=== PATIENT | male | born 1955 | race Caucasian/White ===

== ENCOUNTER 2018-05-14 15:55 | Outpatient (CLI) | payer BC, SELFPAY ==
[2018-05-15 10:35] LABS: PSA, Screening <0.1 ng/ml (0-4.5)
== END 2018-05-14 16:15 ==
PROVIDERS: PCP Emergency Medicine; Visit Provider Emergency Medicine
DX: C61 Malignant neoplasm of prostate
CPT/HCPCS: 36415; 84153

== ENCOUNTER 2019-04-30 15:36 | Outpatient (CLI) | payer BC, SELFPAY ==
[2019-05-01 17:56] LABS: PSA, Diagnostic <0.1 ng/ml (0-4.5)
== END 2019-04-30 15:56 ==
PROVIDERS: PCP Emergency Medicine; Visit Provider Emergency Medicine
DX: C61 Malignant neoplasm of prostate (principal)
CPT/HCPCS: 36415; 84153

== ENCOUNTER 2020-03-17 04:28 | Outpatient (CLI) | payer BC, SELFPAY ==
[2020-03-17 17:40] LABS: PSA, Diagnostic <0.1 ng/mL (0.0-4.5)
== END 2020-03-17 04:48 ==
PROVIDERS: PCP Emergency Medicine; Visit Provider Emergency Medicine
DX: C61 Malignant neoplasm of prostate (principal)
CPT/HCPCS: 36415; 84153

== ENCOUNTER 2021-03-16 15:53 | Outpatient (REF) | payer MEDICARE, BC, SELFPAY ==
[2021-03-16 13:33] LABS: Calculated LDL 119 mg/dL (<100); Cholesterol 193 mg/dL (<200); HDL Cholesterol 48 mg/dL (40-60); Triglyceride 134 mg/dL (<150)
[2021-03-16 21:37] LABS: PSA, Diagnostic <0.1 ng/mL (0.0-4.5)
== END 2021-03-16 15:54 | disposition home or self-care (01) ==
LOC: LBN 15:53
PROVIDERS: PCP Emergency Medicine; Visit Provider Emergency Medicine
DX: C61 Malignant neoplasm of prostate (principal); Z00.00 Encounter for general adult medical examination without abnormal findings; Z13.6 Encounter for screening for cardiovascular disorders
CPT/HCPCS: 80061; 84153

== ENCOUNTER 2023-07-19 03:41 | Outpatient (CLI) | payer MEDICARE, SELFPAY ==
[2023-07-19 12:05] LABS: Calculated LDL 132 mg/dL (<100); Cholesterol 222 mg/dL (<200); HDL Cholesterol 78 mg/dL (40-60); Triglyceride 61 mg/dL (<150)
[2023-07-19 21:37] LABS: PSA, Screening <0.1 ng/mL (<=4.5)
== END 2023-07-19 03:42 | disposition home or self-care (01) ==
LOC: LBO 03:41
PROVIDERS: PCP Nurse Practitioner Family; Visit Provider Nurse Practitioner Family
DX: E78.00 Pure hypercholesterolemia, unspecified (principal); Z85.46 Personal history of malignant neoplasm of prostate; Z12.5 Encounter for screening for malignant neoplasm of prostate
CPT/HCPCS: 36415; 80061; 84153

== ENCOUNTER 2024-07-03 01:21 | Outpatient (CLI) | payer MEDICARE, SELFPAY ==
--- OUTSIDE RECORDS SUMMARY | 2024-07-03 01:28 | XMS_ITS | Encounter Summary ---
Author Organization [facility] Address [facility] [place] [address] Care Team Providers Care Library Director Name Role Phone JaydenJem orozco Primary Care Provider [phone] Encounter Details Date Type Department Care Team (Late st Contact Info) Description 08/11/2012 [place] [address] Eric Avila MD [facility] [place] [place] [address] Social History Tobacco Use Types Packs/Day Years Used Date Smoking Tobacco: Never Smokeless Tobacco: Never Alcohol Use Standard Drinks/Week Comments Yes 2 (1 standard drink = 0.6 oz pur e alcohol) once a week at most Sex and Gender Information Value Date Recorded Sex Assigned at Not on file Gender Identity Not on file Sexual Orientation Not on file documented as of this encounter Miscellaneous Notes * Telephone Encounter - Ryann Hills LPN - 08/11/2012 5:08 PM EST Mr. Silver calls today requesting to see if he can return to work tomorrow instead of next week. Henotes that he feels well. 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 Note faxed to [phone] attn: Karely James per patient request. Note lists ok to return to work with 2 weeks of limited restrictions for no heavy lifting. documented in this encounter Plan of Treatment Upcoming Encounters Date Type Department Care Team (Late st Contact Info) Description 10/05/2024 9:45 AM EDT Office Visit Dermatology at [facility] [address] [place] [address] Maverick Polanco MD [address] [facility] [place] [address] documented as of this encounter Visit Diagnoses Not on filedocumented in this encounter Care Teams Library Director Relationship Specialty Start Date End Date Jem Carpenter DO [address] [place] [address] PCP - General 06/23/12 02/19/22 documented as of this encounter
--- OUTSIDE RECORDS SUMMARY | 2024-07-03 01:28 | XMS_ITS | Encounter Summary ---
Author Organization [facility] Address [facility] [place] [address] Care Team Providers Care Machinist Apprentice Wood Name Role Phone JaydenFrances orozco Primary Care Provider [phone] Reason for Visit * Reason Comments Follow-up Encounter Details Date Type Department Care Team (Latest Contact Info) Description 10/27/2012 4:10 PM EDT [place] [address] Eric Avila MD [facility] [place] [address] S/P prostatectomy (Primary Dx) Discharge Disposition: Home Social History Tobacco Use Types Packs/Day Years [...] on file documented as of this encounter Last Filed Vital Signs Vital Sign Reading Time Taken Comments Blood Pressure 129/86 10/27/2012 4:46 PM EDT Pulse 59 10/27/2012 4:46 PM EDT Temperature - - Respiratory Rate 20 10/27/2012 4:46 PM EDT Oxygen Saturation - - Inhaled Oxygen Concentration - - Weight 81.6 kg (180 lb) 10/27/2012 4:46 PM EDT Height 180.3 cm (5' 11) 10/27/2012 4:46 PM EDT Body Mass Index 25.1 10/27/2012 4:46 PM EDT documented in this encounter Progress Notes * Eric Avila MD - 10/27/2012 4:57 PM EDT Patient Name: Date of Service: 10/27/2012 Primary Care Provider: FRANCES CARPENTER DO Reason for Visit: Margarito Silver is a 57 y.o. male who returns for follow up. Impression and data from last visit: History of Present Illness: 57 year old who on 07/11/2012 had a bilateral nerve sparing Radical prostatectomy for a [id number] Dudley 3+4=7 PSA 7.6 at diagnosis. All margins were negative. 11 nodes negative. Currently he is voiding well. Stream is strong. He has good urine controls. He does use 1 pad a day. He does not use on weekends. He has erections that are good enough for intercourse. There has been no change in PMhx/Pshx since last visit. Examination: No adenopathy. No hernias. Abdomen benign Labs: 10/2012 PSA <0.03 X-rays: None Impression: [id number] Mayank 3+4=7 prostate cancer sp RRP. ROSARIO Mild incontinence improving Recovering erections Plan: F/u with Dr Main in 6 months with a PSA. I will see as needed Erci Avila documented in this encounter Plan of Treatment Upcoming Encounters Date Type Department Care Team (Late st Contact Info) Description 10/05/2024 9:45 AM EDT Office Visit Dermatology [facility] [address] [place] [address] Maverick Polanco MD [address] [facility] [place] [address] documented as of this encounter Procedures Procedure Name Priority Date/Time Associated Diagnosis Comments PSA (ULTRASENSITIVE) STAT 10/27/2012 3:47 PM EDT S/P prostatectomy documented in this encounter Results * PSA (10/27/2012 3:47 PM EDT) Prostate Specific Antigen (Ultrasensitiv e) <0.03 0.00 - 4.00 ng/mL YARIEL GARCIA Blood specimen (specimen) 10/27/2012 3:47 PM EDT 10/27/2012 3:58 PM EDT Narrative Resulting Agency Comment Spec In Lab Eric Avila MD CHEMISTRY ORDERABLES [facility] documented in this encounter Visit Diagnoses Diagnosis S/P prostatectomy- Primary Other postprocedural status documented in this encounter Care Teams Machinist Apprentice Wood Relationship Specialty Start Date End Date Frances Carpenter DO [address] [place] [address] PCP - General 06/23/12 02/19/22 documented as of this encounter
--- OUTSIDE RECORDS SUMMARY | 2024-07-03 01:28 | XMS_ITS | Encounter Summary ---
Author Organization [facility] [place] [address] Care Team Providers Care Breakfast Host Name Role Phone Norman Abdul CIRCULATION SALES REPRESENTATIVE Primary Care Provider [phone] Reason for Visit * Reason Comments Skin Check Encounter Details Date Type Department Care Team (Late st Contact Info) Description 03/02/2024 11:15 AM EDT Office Visit Dermatology [facility] [address] [place] [address] Maverick Polanco MD [address] [facility] [place] [address] Seborrheic keratosis; Solar lentigo; Multiple benign melanocytic nevi of both upper extremities, both lower extremities, and trunk; Hinson angioma; Sebaceous hyperplasia; Lipoma of right upper extremity Social History Tobacco Use Types Packs/Day Years [...] on file documented as of this encounter Progress Notes * Bryanna Brice RN - 03/02/2024 11:15 AM EDT Images from the original note were not included. DEPARTMENT OF DERMATOLOGY Medical Dermatology Clinic Provider: Maverick Polanco MD FAAD at Dermatology at [facility] Patient's preferred name Margarito Preferred contact method for results []Phone: with detailed results? []Yes []No [x]myD-H []Letter Approved contact for medical information: PAST MEDICAL HISTORY (if blank, patient denies history) Melanoma -- Dysplastic nevi -- SCC -- BCC -- [place] [] cryotherapy [] efudex [] PDT [] Other Relevant Medications [] Immunosuppression [] Transplant [] Oncogenic medication [] Nicotinamide 500mg po bid Other relevant history FAMILY HISTORY (if blank, patient denies history) Melanoma -- NMSC -- Other relevant history SOCIAL HISTORY Occupation: Works for [employer] Last seen 03/20/2023. History of Present Illness: Margarito Silver is 68 y.o. and here for the following: Requests skin cancer screening. Concerned about the following: Lesion in the left axilla x2, present for 1 year, occasionally itchy Lesions on the left forehead, itchy Brown lesion on the left eyelid, asymptomatic Medications: Reviewed in eD-H Allergies: Reviewed in eD-H Skin Examination Standby: Bryanna Brice RN Well developed, well-nourished in no apparent distress, alert and oriented to time, person, place and situation. Patient was asked to disrobe to the level of comfort. Examination of the skin of the head - including the scalp, face, ears, eyelids, nose, lips, tongue,oral/conjunctival mucosa - neck, chest, abdomen, back, axillae, buttocks, pubic area, upper and lower extremities, including the nail plates, significant for the following. Exam Findings/Assessment/Plan Lipomas 4 cm rubbery mobile nodule on the right posterior shoulder. 6 cm rubbery mobile nodule on the rightlateral shoulder. Benign. Recommend clinical monitoring. Counseled: benign fatty growths of unknown etiology with occasional sympomatic subtypes and very rare malignant variants. Diagnostic confirmation with biopsy available but not necessary. Treatment isrecommended only if symptoms, such as pain, or great size that impacts the patient develop. Treatment includes excision and risks scar, infection, bleeding, cosmetic defects and recurrence. Answered all questions. Patient elects clinical monitoring. Return to clinic if changes in color, enlarges, or should bleeding or other symptoms occur. Patientagrees to plan. Sebaceous Gland Hyperplasia Yellow-hued, cauliflower-like umbilicated papules c/w sebaceous hyperplasia on the face Counseled: benign growths of sebaceous glands (hair follicle unit) that harbor a rare risk of sebaceous carcinoma, and treatment options, including but not limited to topical retin-a, light electrocautery, or laser therapy. Cosmetic treatment and therefore, likely [id number] expense. Handout given. Answered all questions. Patient declines treatment at this time. Return to clinic if changes in color, enlarges, or should bleeding or other symptoms occur. Patientagrees to plan. Lentigines Multiple, uniformly mayfield, slightly irregular, polygonal macules c/w lentigos on sun-exposed areas ofskin Benign. Counseled: lentigines, sun damage and spontaneous development, rare risk of lentigo maligna (melanoma arising in a lentigo), sun protection, no treatment necessary but discussed cosmetic options, including topical bleaching agents, as well as chemical peels and lasers. Answered all questions. Handout given. Hinson Angiomas Hinson red papules on the head, trunk, and extremities Counseled: hinson angiomas. Benign. No treatment necessary unless symptoms develop. Treatment considered cosmetic and [id number]. Treatment options, including but not limited to electrocautery, discussed. Handout given. Nevi Well-demarcated, round or oval, mayfield or brown macules and papules with benign morphology on the head, neck, trunk, extremities, and buttocks Morphology reassuring for benign nevi. Counseled: Nevi and risks for melanoma arising in a nevus. Recommend regular self-examinations. Answered all questions. Reviewed ABCDEs of melanoma, as below. Return to clinic as needed for changes in color, size, shape or thickness or should bleeding or other symptoms occur. Patient agrees to plan. Seborrheic Keratoses Scattered, stuck-on, well-demarcated, mayfield or brown, waxy or warty papules c/w SKs on the head, trunk, extremities, and axillae including the left lateral hip, right lower back, left upper forehead, and left upper eyelid. Benign. No treatment necessary. Counseled: SKs, benign, treatment options for symptomatic lesions. Answered all questions. Handout given. Patient Counseled [Skin Cancer] [] History of skin cancer [] History of immunosuppression [x] History of extensive sun exposure [] Family history of skin cancer Counseled: recommend sun protection, regular self skin exams, provider skin exams every 12-24 months, and the ABCDEs of melanoma/NMSC. Answered all questions. Handouts on how to do a self-exam, skin cancers and sun protection/recommended OTC sunscreens given to the patient. Joint decision for skin cancer screening in 24 months. Regular full body self examinations and return to clinic for new suspicious lesions or if changes/symptoms in existing lesions develop. Follow-up: 24 months for a SCS. Return sooner as needed for suspicious lesion, new or worsening dermatitis. [x] Recall placed [] Forwarded to university archivist [] Patient scheduled before exiting Scribe attestation: Bryanna Brice RN has performed the documentation for this encounter in the presence of and acting as a scribe for MD ANKIT Ariza. I performed the above scribed service and agree with the accuracy of the documentation in this encounter. Reviewed and signed by: MD ANKIT Ariza Dermatology [facility] documented in this encounter Plan of Treatment Upcoming Encounters Date Type Department Care Team (Late st Contact Info) Description 10/05/2024 9:45 AM EDT Office Visit Dermatology at [facility] [address] [place] [address] Maverick Polanco MD [address] [facility] [place] [address] documented as of this encounter Visit Diagnoses Diagnosis Seborrheic keratosis Other seborrheic keratosis Solar lentigo Other dyschromia Multiple benign melanocytic nevi of both upper extremities, both lower extremities, and trunk Hinson angioma Nevus, non-neoplastic Sebaceous hyperplasia Other specified disease of sebaceous glands Lipoma of right upper extremity Lipoma of other specified sites documented in this encounter Care Teams Breakfast Host Relationship Specialty Start Date End Date Norman Abdul, BECKA [address] [place] [address] [address] [place] [address] PCP - General Family Medicine 02/20/22 documented as of this encounter
--- OUTSIDE RECORDS SUMMARY | 2024-07-03 01:28 | XMS_ITS | Encounter Summary ---
Author Organization [facility] [place] [address] Care Team Providers Care Metal Flooring Installer Name Role Phone Norman Abdul APRN Primary Care Provider [phone] Encounter Details Date Type Department Care Team (Latest Contact Info) Description 03/18/2023 Travel Social History Tobacco Use Types Packs/Day Years [...] on file documented as of this encounter Plan of Treatment Upcoming Encounters Date Type Department Care Team (Late st Contact Info) Description 10/05/2024 9:45 AM EDT Office Visit Dermatology at [facility] [address] [place] [address] Maverick Polanco MD [address] [facility] [place] [address] documented as of this encounter Visit Diagnoses Not on filedocumented in this encounter Care Teams Metal Flooring Installer Relationship Specialty Start Date End Date Norman Abdul APRN [address] [place], [place] [id number] PCP - General Family Medicine 02/20/22 documented as of this encounter
--- OUTSIDE RECORDS SUMMARY | 2024-07-03 01:28 | XMS_ITS | Encounter Summary ---
Author Organization [facility] Address [facility] [place] [address] Care Team Providers Care Hydrochloric Manufacturing Supervisor Name Role Phone JaydenJem orozco Primary Care Provider [phone] Reason for Visit * Reason Comments Skin Check Encounter Details Date Type Department Care Team (Late st Contact Info) Description 09/17/2019 8:30 AM EST Office Visit Dermatology at [address] [address] Suzy Duran MD [facility] [place] [address] Lentigines; Seborrheic keratosis; Seborrheic dermatitis; Multiple benign nevi Social History Tobacco Use Types Packs/Day Years [...] as of this encounter Progress Notes * Suzy Duran MD - 09/17/2019 8:30 AM EST DERMATOLOGY OUTPATIENT CLINIC NOTE Date of service: 09/17/2019 Margarito Silver : 1955 Provider: Suzy Durna MD PROBLEM: Full skin screening with concerning spot SKIN HISTORY: none HPI Margarito Silver is a 64 y.o.male. New pt here for full skin screening and a concerning spot. He has a mole on the back that has been present for unknown length of time and has no symptoms. He reports a mole on the right latter-day that has been present for along time. He has a skin rash on chest. Hehas used something in the past, but nothing recently. Does not bother him. They are going to [place] tomorrow to visit their daughter. Social History: Works for [employer] Here with [employer] Family History: none ADR: No Known Allergies CURRENT MEDICATIONS: No current outpatient medications on file. No current facility-administered medications for this visit. PROBLEM LIST: Patient Active Problem List Diagnosis Code ??? Prostate cancer C61 ROS General: feeling well. Oriented X 3. Skin: denies other skin complaints EXAM General: NAD, pleasant, cooperative Skin: Patient was asked to undress to the level of his comfort. Verbalized that the provider's preference is for the patient to remove all clothing and that the provider will not examine areas patient elects to keep covered. Patient's decision was to remove underwear for a total body skin exam. This includes examination of the scalp, hair, face, ears, neck, chest, abdomen, back, axillae, upper and lower extremities, hands, and feet. Buttocks and genitalia were examined with patient's consent. Significant skin findings: -Trunk and extremities: waxy, brown stuck-on papules. -Photo distributed areas: hyperpigmented macules. -Central chest: pink scaly patch. -Trunk and extremities: scattered, 2-6 mm medium brown macules. ASSESSMENT/PLAN Seborrheic Keratoses - Explained that these are hereditary and adult-acquired. Reassured patient of benign nature. No treatment necessary. Lentigines - Discussed benign nature of lesions and provided reassurance. No treatment necessary at this time. - Discussed nature of sun-induced photo-aging and skin cancers. Advised sun avoidance, protective clothing, and use of SPF 30+ broad-spectrum sunscreens. - Instructed patient to observe closely for skin damage/changes and call if such occur. Seborrheic Dermatitis - Discussed etiology and therapeutic options. - Patient declines Ketoconazole cream at this time. - Recommended using OTC anti-dandruff shampoo several times weekly. Advised lathering it on and letting it sit for 5 minutes before rinsing. Low density Benign-Appearing Nevi - No atypical lesions or features worrisome for malignancy. - Advised patient to watch for anything new or changing. Discussed changes (bleeding, pain, change in color or shape) that should prompt re-evaluation.?? - Will continue to monitor. RTC - 2 years for a full skin exam; sooner if needed. Reminder placed in system to schedule. Instructed patient to call with questions or concerns. Note initiated and routed to physician for review and change by: MALIA DE LEON LPN I, Josefina Curry, Clinical Scribe have performed the documentation for this encounter in the presence of and acting as a scribe for Suzy Duran MD. I, Dr. Suzy Duran, performed the visit service though my nurse assisted me in scribing the note. I reviewed and edited this note above, a scribed service performed by my nurse. On closure of this note I agree with the accuracy of the documentation. Suzy Duran MD Section of Dermatology [facility] documented in this encounter Plan of Treatment Upcoming Encounters Date Type Department Care Team (Late st Contact Info) Description 10/05/2024 9:45 AM EDT Office Visit Dermatology at [facility] [address] [place] [address] Maverick Polanco MD [address] [facility] [place] [address] documented as of this encounter Visit Diagnoses Diagnosis Lentigines Other dyschromia Seborrheic keratosis Other seborrheic keratosis Seborrheic dermatitis Seborrheic dermatitis, unspecified Multiple benign nevi Benign neoplasm of skin, site unspecified documented in this encounter Care Teams Hydrochloric Manufacturing Supervisor Relationship Specialty Start Date End Date Jem Carpenter DO [address] [place] [address] [address] [place] [address] PCP - General 06/23/12 02/19/22 documented as of this encounter
--- OUTSIDE RECORDS SUMMARY | 2024-07-03 01:28 | XMS_ITS | Encounter Summary ---
Author Organization [facility] Address [facility] [place] [address] Care Team Providers Care Gas Torch Solderer Name Role Phone Franko Norman Matson APRN Primary Care Provider [phone]- [phone] Reason for Visit * Consultation (Routine) - Closed Specialty Diagnoses / Procedures Referred By Robby almaraz Referred To Contact Dermatology Diagnoses Screening for skin cancer Zak Jimenez MD [address] [place] [phone] [facility] [address] [place] [address] Referral ID Status Reason Start Date Expiration Date V isits Requested Visits Authorized [id number] Closed Consult, Test & Treat PCP Updated and/or Approved 12/01/2021 12/01/2022 6 6 Encounter Details Date Type Department Care Team (Late st Contact Info) Description 02/20/2022 8:15 AM EDT Office Visit Dermatology at [facility] [address] [place] [address] Gaurav Vega MD [facility] [address] [place] [address] Seborrheic keratoses; Lentigines; Actinic keratoses; Tinea versicolor; Lipoma, unspecified site; Multiple benign nevi Social History Tobacco Use [...] as of this encounter Progress Notes * Brian Ana Georges, JUNIOR BUYER - 02/20/2022 8:15 AM EDT Images from the original note were not included. DEPARTMENT OF DERMATOLOGY Medical Dermatology Clinic Provider: Gaurav Vega MD Patient's preferred name Margarito Preferred contact method for results []Phone []myD-H []Letter Detailed phone message OK? Are there any other people with whom we may discuss your care? Past Medical History Date, location, treatment Melanoma N Dysplastic nevi N SCC N BCC N AKs N Other relevant past medical history N Family History Details Melanoma N NMSC N Other relevant family history N Social History Works for [employer] Here with Jing History of Present Illness: Margarito Silver is a 66 y.o. Patient returns to clinic today for a full skin exam, he has a spot on the left hip that has been there for years, not changing, itchy; he has a mole on the right forehead removed with LN2 by his PCP about a year ago that he would like checked. He has not noted any other new, growing, changing, bleeding, painful or otherwise symptomatic moles or other lesions. He has not noted any other changes in any preexisting lesions. Last visit at Dermatology: 09/17/2019 Last visit with this provider: Visit date not found Medications: Reviewed in eD-H Allergies: Reviewed in eD-H Skin Examination: Full skin examination: Patient asked to undress to their comfort level. Verbalized that the provider???s preference is that the patient remove all clothing and that the provider will not examine areas patient elects to keep covered. Patient elects to have the following examined: scalp, hair, face, ears, neck, chest, axillae, abdomen, back, and upper and lower extremities. Genitalia not examined. Assessment/Plan: #. Actinic Keratoses - Ill-defined gritty papules on the forehead (x3). - Explained premalignant potential of these lesions. - Discussed treatment with cryotherapy. Patient elects to proceed with cryotherapy today. - Instructed patient to return to clinic for re-evaluation if lesion(s) does not resolve as expected with this treatment. Procedure: Destruction of lesion(s) with cryotherapy (LN2). Location(s): As noted above. Number: 3 Discussed procedure and expectations, including risks and benefits. Verbal consent obtained. Treated with LN2. There were no complications; Patient tolerated the procedure well. Post-procedure expectations and wound care reviewed. #. Tinea Versicolor - Scattered 0.5-1.5 cm pink to light brown, round, well- demarcated, thin patches with very fine overlying scale on the central chest. - Reviewed diagnosis, association with yeast, and treatment options. - Discussed delay in return of normal pigmentation after treatment and accentuation of difference with unprotected sun exposure. - Start Rx Ketoconazole 2% cream BID for 2 weeks #. Lipoma - 8 cm rubbery, subcutaneous nodule on the right arm and 2 cm on right posterior shoulder. - Discussed etiology and benign nature of lesion and provided reassurance. No treatment necessary at this time. #. Lentigines - Scattered light-brown, evenly pigmented, well-demarcated macules on sun-exposed areas of the trunk and extremities. - No worrisome pigmented lesions. Discussed benign nature of lesions and provided reassurance. Willcontinue to monitor. #. Seborrheic Keratoses - Stuck on, waxy papules on the trunk and extremities, including the left hip. - Discussed benign nature of lesions and provided reassurance. No treatment necessary at this time. #. Benign Nevi - Scattered medium brown, evenly pigmented macules and papules on the trunk and extremities with reassuring pigment pattern on dermoscopy. 4 mm nevus on right latter-day. - Discussed benign nature of lesions and provided reassurance. Will continue to monitor. Other: ??? N/A RTC: 1 year for FSE []Note routed to department secretary [x]Recall placed in scheduling system []Appointment scheduled at checkout Scribe attestation: Ana Torres CMA and Francis Toscano have performed the documentation for this encounter in the presence of and acting as a scribe for Gaurav Vega MD. I performed the above scribed service and agree with the accuracy of the documentation in this encounter. Reviewed and signed by: Gaurav Vega MD Dermatology [facility] documented in this encounter Plan of Treatment Upcoming Encounters Date Type Department Care Team (Late st Contact Info) Description 10/05/2024 9:45 AM EDT Office Visit Dermatology at [facility] [address] [place] [address] Maverick Polanco MD [address] [facility] [place] [address] documented as of this encounter Visit Diagnoses Diagnosis Seborrheic keratoses Lentigines Other dyschromia Actinic keratoses Actinic keratosis Tinea versicolor Pityriasis versicolor Lipoma, unspecified site Multiple benign nevi Benign neoplasm of skin, site unspecified documented in this encounter Care Teams Gas Torch Solderer Relationship Specialty Start Date End Date Norman Abdul APRN [address] [place] [address] PCP - General Family Medicine 02/20/22 documented as of this encounter
--- OUTSIDE RECORDS SUMMARY | 2024-07-03 01:28 | XMS_ITS | Encounter Summary ---
Author Organization [facility] [place] [address] Care Team Providers Care Shell Coremaker Name Role Phone Norman Abdul APRN Primary Care Provider [phone]- [phone] Encounter Details Date Type Department Care Team (Latest Contact Info) Description 03/20/2023 Travel Social History Tobacco Use Types Packs/Day [...] 9:45 AM EDT Office Visit Dermatology at [facility] [address] [place] [address] Maverick Polanco MD [address] [facility] [place] [address] documented as of this encounter Visit Diagnoses Not on filedocumented in this encounter Care Teams Shell Coremaker Relationship Specialty Start Date End Date Norman Abdul APRN [address] [place], [place] [id number] PCP - General Family Medicine 02/20/22 documented as of this encounter
--- OUTSIDE RECORDS SUMMARY | 2024-07-03 01:28 | XMS_ITS | Encounter Summary ---
Author Organization [facility] Address [facility] [place] [address] Care Team Providers Care Animal Sticker Name Role Phone JaydenJem orozco Primary Care Provider Encounter Details Date Type Department Care Team (Late st Contact Info) Description 07/21/2012 11:00 AM EST [place] [address] Rita Calderon MD [facility] [place] [address] Prostate cancer (Primary Dx) Discharge Disposition: Home Social History [...] as of this encounter Progress Notes * Guy Yarbrough MD - 07/21/2012 1:37 PM EST CLINIC NOTE Pt here for catheter removal s/p RALP. We discussed his path including that his margins were negative, he has negative nodes, and his disease grade was the same as his biopsy (3+4). He is enthusiastic about this news. He has some leakage and will start kegels. Path is below: SURGICAL PATHOLOGY ---Pathologic Diagnosis--- A - Specimen type: Radical prostatectomy Histologic type: Adenocarcinoma of the prostate Laporte grades: 3+4 Laporte score: 7 Location of tumor: Right lobe % prostate involved by tumor: 10% Extracapsular extension (MARANDA):Absent Seminal vesicle invasion: Absent Margins: Margins uninvolved by invasive carcinoma Perineural invasion: Present Lymphovascular invasion: Absent Additional findings: 1 - Cystic atrophy. 2 - Focal acute prostatitis. TNM STAGING (AJCC, 7th ed., 2009): Extent of invasion: pT2a (organ confined, unilateral, <1/2 of 1 side) Regional lymph nodes: pN0 (no regional LN metastasis) Distant metastasis: pMX (cannot be assessed) B - Left pelvic lymph nodes, excision: Five lymph nodes negative for malignancy (0/5). C - Right pelvic lymph nodes, excision: Six lymph nodes negative for malignancy (0/6). CR-0 documented in this encounter Plan of Treatment Upcoming Encounters Date Type Department Care Team (Late st Contact Info) Description 10/05/2024 9:45 AM EDT Office Visit Dermatology at [facility] [address] [place] [address] Maverick Polanco MD [address] [facility] [place] [address] documented as of this encounter Visit Diagnoses Diagnosis Prostate cancer- Primary Malignant neoplasm of prostate documented in this encounter Care Teams Animal Sticker Relationship Specialty Start Date End Date Jem Carpenter DO [address] [place] [address] [address] [place] [address] PCP - General 06/23/12 02/19/22 documented as of this encounter
--- OUTSIDE RECORDS SUMMARY | 2024-07-03 01:28 | XMS_ITS | Encounter Summary ---
Author Organization [facility] Address [facility] [place] [address] Care Team Providers Care Change Lead Name Role Phone JaydenJem herring Primary Care Provider [phone] Encounter Details Date Type Department Care Team (Late st Contact Info) Description 07/18/2012 Telephone [place] [address] Jose L Upton MD [facility] [place] [address] Social History Tobacco Use Types Packs/Day Years [...] encounter Miscellaneous Notes * Telephone Encounter - Jose L Upton - 07/18/2012 7:14 PM EST Pt called again, minimal drainage into catheter over the last 2 hours, leaking more around the catheter than into it. Unsure if his bladder is full or not, but having discomfort in his lower abdomen.Advised I cannot be sure his walker is not occluded, advised to go to local ED for bladder scan to be sure his walker is draining, it if it is he may benefit from anticholinergics prior to walker removal on Saturday. documented in this encounter Plan of Treatment Upcoming Encounters Date Type Department Care Team (Late st Contact Info) Description 10/05/2024 9:45 AM EDT Office Visit Dermatology at [facility] [address] [place] [address] Maverick Polanco MD [address] [facility] [place] [address] documented as of this encounter Visit Diagnoses Not on filedocumented in this encounter Care Teams Change Lead Relationship Specialty Start Date End Date Jem Carpenter DO [address] [place] [address] PCP - General 06/23/12 02/19/22 documented as of this encounter
--- OUTSIDE RECORDS SUMMARY | 2024-07-03 01:28 | XMS_ITS | Encounter Summary ---
Author Organization [facility] [place] [address] Care Team Providers Care Interior Designer Name Role Phone Norman Abdul BECKA Primary Care Provider [phone]- [phone] Encounter Details Date Type Department Care Team (Late st Contact Info) Description 03/20/2023 4:30 PM EDT Office Visit Dermatology [facility] [address] [place] [address] Maverick Polanco MD [address] [facility] [place] [address] Sebaceous hyperplasia; SK (seborrheic keratosis); Multiple benign nevi of upper extremity, lower extremity, and trunk; Hinson angioma; Lentigines; Inflamed seborrheic keratosis; Seborrheic dermatitis Social History Tobacco Use Types Packs/Day Years [...] as of this encounter Progress Notes * Maverick Polanco MD - 03/20/2023 4:30 PM EDT Images from the original note were not included. DEPARTMENT OF DERMATOLOGY Medical Dermatology Clinic Provider: Maverick Polanco MD FAAD at Dermatology at [facility] Patient's preferred name Margarito Preferred contact method [...] relevant history SOCIAL HISTORY Occupation: Works for [employer] Last seen 02/20/2022. History of Present Illness: Margarito Silver is 67 y.o. and here for the following: Requests skin cancer screening. Concerned about the following: Under the left arm are a few lesions that are growing. New in the last few years Lesion on the right lower back that was itchy. At the belt line so it is bothersome Medications: Reviewed in eD-H Allergies: Reviewed in eD-H Skin Examination Standby: Yola Cevallos, RICHARD Well developed, well-nourished in no apparent distress, [...] plates, significant for the following. Exam Findings/Assessment/Plan Seborrheic Dermatitis Light red scaly patches on the midline lower chest, hair bearing Favor seborrheic dermatitis over tinea versicolor Recommend OTC anti fungal cream or Selsun Blue shampoo Counseled: seborrheic dermatitis, chronic and recurrent course, etiologies and triggers, and treatment options for seborrheic dermatitis, including but not limited to OTC anti-dandruff shampoo, topical antifungals and topical steroids; discussed major risk of topical antifungals including irritation and major risks of topical steroids including skin atrophy with prolonged use. Answered all questions. Start OTC antifungal cream twice daily PRN or Selsun Blue shampoo twice a week. Let sit for 5 minutes and then rinse Sebaceous Gland Hyperplasia Yellow-hued, cauliflower-like umbilicated papules c/w sebaceous hyperplasia on the face Counseled: benign growths of sebaceous glands (hair follicle unit) that harbor a rare risk of sebaceous carcinoma, and treatment options, including but not limited to topical retin-a, light electrocautery, or laser therapy. Cosmetic treatment and therefore, likely ari-qu-qiyegp expense. Handout given. Answered all questions. Patient declines treatment at this time. Return to clinic if changes in color, enlarges, or should bleeding or other symptoms occur. Patientagrees to plan. Inflamed Seborrheic Keratosis 4-5 mm stuck-on, well-demarcated, pink warty papules or plaques on pink bases or eroded on the leftupper forehead Benign. Symptomatic or inflamed. Counseled: ISKs and SKs, benign, treatment options for symptomatic lesions including cryotherapy orhydrogen peroxide and their major risks including but not limited to pain, scarring, and recurrence. Answered all questions. Patient defers treatment. Lentigines Multiple, uniformly mayfield, slightly irregular, polygonal [...] unless symptoms develop. Treatment considered cosmetic and [id number]. Treatment options, including but not limited to [...] extremities, and axillae including the left lateral hip and right lower back Benign. No treatment necessary. Counseled: SKs, benign, treatment options for symptomatic lesions. Answered all questions. Handout given. Patient Counseled [Skin Cancer] [] History of skin cancer [] History of immunosuppression [x] History of extensive sun exposure [] Family history of skin cancer Counseled: recommend sun protection, regular self skin exams, provider skin exams every 12 months, and the ABCDEs of melanoma/NMSC. Answered all questions. Handouts on how to do a self-exam, skin cancers and sun protection/recommended OTC sunscreens given to the patient. Joint decision for skin cancer screening in 12 months. Regular full body self examinations and return to clinic for new suspicious lesions or if changes/symptoms in existing lesions develop. Follow-up: February-March 2024 for SCS. Return sooner as needed for suspicious lesion, new or worsening dermatitis. [x] Recall placed [] Forwarded to manufacturing scheduler [] Patient scheduled before exiting Scribe attestation: Yola Cevallos CMA has performed the documentation for this encounter inthe presence of and acting as a scribe for MD ANKIT Ariza. I performed the above scribed service and agree with the accuracy of the documentation in this encounter. Reviewed and signed by: MD ANKIT Ariza Dermatology [facility] documented in this encounter Plan of Treatment Upcoming Encounters Date Type Department Care Team (Late st Contact Info) Description 10/05/2024 9:45 AM EDT Office Visit Dermatology at [facility] [address] [place] [address] Maverick Polanco MD [address] [facility] [place] [address] documented as of this encounter Visit Diagnoses Diagnosis Sebaceous hyperplasia Other specified disease of sebaceous glands SK (seborrheic keratosis) Other seborrheic keratosis Multiple benign nevi of upper extremity, lower extremity, and trunk Hinson angioma Nevus, non-neoplastic Lentigines Other dyschromia Inflamed seborrheic keratosis Seborrheic dermatitis Seborrheic dermatitis, unspecified documented in this encounter Care Teams Interior Designer Relationship Specialty Start Date End Date Norman Abdul, BECKA [address] [place] [address] PCP - General Family Medicine 02/20/22 documented as of this encounter
--- OUTSIDE RECORDS SUMMARY | 2024-07-03 01:28 | XMS_ITS | Encounter Summary ---
Author Organization [facility] [place] [address] Care Team Providers Care Patient Ambassador Name Role Phone Jayden, Jem LORD Primary Care Provider [phone] Reason for Referral * Consultation (Routine) - Closed Specialty Diagnoses / Procedures Referred By Robby almaraz Referred To Contact Dermatology Diagnoses Screening for skin cancer Zak Jimenez MD [address] [place] [phone] [facility] Dermatology [address] [place] [address] Referral ID Status Reason Start Date Expiration Date V isits Requested Visits Authorized [id number] Closed Consult, Test & Treat PCP Updated and/or Approved 12/01/2021 12/01/2022 6 6 Encounter Details Date Type Department Care Team (Latest Contact Info) Description 12/01/2021 Transcribe Orders eDH Incoming Referrals [phone] Zak Jimenez MD [address] [place] [phone] Screening for skin cancer Social History Tobacco Use Types Packs/Day Years [...] 9:45 AM EDT Office Visit Dermatology at [facility] [address] [place] [address] Maverick Polanco MD [address] [facility] [place] [address] Scheduled Referrals Name Type Priority Associated Diagnoses Order Schedule Referral to Dermatology Outpatient Referral Routine Screening for skin cancer Ordered: 12/01/2021 documented as of this encounter Visit Diagnoses Diagnosis Screening for skin cancer Screening for malignant neoplasm of the skin documented in this encounter Care Teams Patient Ambassador Relationship Specialty Start Date End Date Jem Carpenter DO [address] [place] [address] PCP - General 06/23/12 02/19/22 documented as of this encounter
--- OUTSIDE RECORDS SUMMARY | 2024-07-03 01:28 | XMS_ITS | Clinical Summary ---
Author Organization [facility] Address [facility] [place] [address] Care Team Providers Care Entry Level Software Developer Name Role Phone FrankoConniekimberly Matson APRN Primary Care Provider [phone]- [phone] Allergies No known active allergies Medications Medication Sig Dispensed Refills Start Date End Date Status ketoconazole (Nizoral) 2 % CreamIndications:Janet a versicolor Apply to the affected areas on the central chest twice daily for 2 weeks, 30 g 1 02/20/2022 Active Active Problems Problem Noted Date Diagnosed Date Prostate cancer 06/23/2012 Resolved Problems Problem Noted Date Diagnosed Date Resolved Date Pre-op exam 06/23/2012 07/11/2012 Immunizations Name Administration Dates Next Due Covid-19 Monovalent (Moderna Spikevax) 12yrs+ ([id number]) 10/24/2020,09/26/2020 Td Adult (not absorbed) 03/14/2004 Social History Tobacco Use Types Packs/Day Years Used Date Smoking Tobacco: Never Smokeless Tobacco: Never Alcohol Use Standard Drinks/Week Comments Yes 2 (1 standard drink = 0.6 oz pur e alcohol) once a week at most Sex and Gender Information Value Date Recorded Sex Assigned at Not on file Gender Identity Not on file Sexual Orientation Not on file Last Filed Vital Signs Vital Sign Reading Time Taken Comments Blood Pressure 129/86 10/27/2012 4:46 PM EDT Pulse 59 10/27/2012 4:46 PM EDT Temperature 37.2 ??C (99 ??F) 07/12/2012 1:05 PM EST Respiratory Rate 20 10/27/2012 4:46 PM EDT Oxygen Saturation 96% 07/12/2012 1:05 PM EST Inhaled Oxygen Concentration - - Weight 81.6 kg (180 lb) 10/27/2012 4:46 PM EDT Height 180.3 cm (5' 11) 10/27/2012 4:46 PM EDT Body Mass Index 25.1 10/27/2012 4:46 PM EDT Plan of Treatment Upcoming Encounters Date Type Department Care Team (Late st Contact Info) Description 10/05/2024 9:45 AM EDT Office Visit Dermatology at [facility] [address] [place] [address] Maverick Polanco MD [address] [facility] [place] [address] Health Maintenance Due Date Last Done Comments CT Colonography 1954 Colonoscopy 1954 Colorectal Cancer Screening 1954 FIT DNA 1954 FIT 1954 Sigmoidoscopy (10 year) with FIT yearly 1954 Sigmoidoscopy 1954 Hepatitis C Screening 1972 Lipid Screening 1972 Tetanus/Diphtheria/Pertussis Vaccines (1 - Tdap) 03/15/2004 03/14/2004 Zoster vaccine (1 of 2) 2004 Advance Directive 2009 Pneumoccocal Vaccine: 65+ (1 of 1 - PCV) 2019 Covid-19 Vaccine (3 - season) 03/22/202411/2020, 09/26/2020 Influenza (Flu) vaccine (1 o f 1 - Influenza standard series) 03/22/2024 Advance Directives * Full Code (Latest Code Status on File) Date Activated Date Inactivated Comments 07/11/2012 2:08 PM 07/12/2012 6:09 PM Question Answer Comments Order Status: Initial Order Does patient have decision m aking capacity? Yes, Order is based on Patients wishes. Care Teams Entry Level Software Developer Relationship Specialty Start Date End Date Norman Abdul APRN [address] [place], [place] [address] PCP - General Family Medicine 02/20/22
--- OUTSIDE RECORDS SUMMARY | 2024-07-03 01:28 | XMS_ITS | Encounter Summary ---
[place] [address] Care Team Providers Care Electronic Publisher Name Role Phone JaydenJem orozco Primary Care Provider [phone] Reason for Visit * Reason Comments Post Op Encounter Details Date Type Department Care Team (Latest Contact Info) Description 07/21/2012 11:00 AM EST [place] [address] S/P prostatectomy (Primary Dx) Social History Tobacco Use Types Packs/Day Years [...] on file documented as of this encounter Patient Instructions * Patient Instructions* Ryann Hills LPN - 07/21/2012 10:59 AM EST Please remember to pickers material handlers your prescription for the antibiotic Ciprofloxacin from your pharmacy. Please take the antibiotic twice daily for 3 days. Remember to take the second tablet today. Please call if you are unable to urinate and if you are unable to urinate and experience abdominal discomfort. Over the weekend and after 5pm, please call the main hospital number [phone] and ask for the Urology Resident pond tender. During the day please call [phone] for the main Urology Department. If you go to a hospital closer to you, not [facility], please inform the Hospital staff that you have had a Robotic-assisted laparoscopic radical prostatectomy. Please have the staff call our office in this situation. Please follow up with Dr. Avila in 3 months with a PSA prior. documented in this encounter Progress Notes * Ryann Hills LPN - 07/21/2012 11:00 AM EST Patient presents today for a voiding trial and catheter removal s/p RALP on 07/11/[address] Avila. The patient will take Ciprofloxacin 500mg 1 po bid x's 3 days pending culture results. All incisions well approximated. No signs of infection noted. Procedure: 105ml normal saline instilled via walker catheter. Balloon deflated. Walker gently removed. Patient voided 105 ml's. FOS moderate, per patient, not as strong as before. Moderate control, some dribblingnoted. Kegals practiced at this time. All instructions and literature reviewed with patient. Patient verbalized understanding of instructions. The patient will be notified when the culture results are available. Supplies given: 3 depends guards for men PVR: 46cc measured in the supine position with the bladder scanner shortly after the patient had voided. BILL BENAVIDEZ Dr. talked with the patient and his about pathology. documented in this encounter Plan of Treatment Upcoming Encounters Date Type Department Care Team (Late st Contact Info) Description 10/05/2024 9:45 AM EDT Office Visit Dermatology at [facility] [address] [place] [address] Maverick Polanco MD [address] [facility] [place] [address] documented as of this encounter Results * PSA (10/27/2012 3:47 PM EDT) Prostate Specific Antigen (Ultrasensitiv e) <0.03 0.00 - 4.00 ng/mL YARIEL CHAPARROIUM Blood specimen (specimen) 10/27/2012 3:47 PM EDT 10/27/2012 3:58 PM EDT Narrative Resulting Agency Comment Spec In Lab Eric Avila MD CHEMISTRY ORDERABLES YARIEL GARCIA documented in this encounter Visit Diagnoses Diagnosis S/P prostatectomy- Primary Other postprocedural status documented in this encounter Care Teams Electronic Publisher Relationship Specialty Start Date End Date Jem Carpenter DO [address] [place] [address] PCP - General 06/23/12 02/19/22 documented as of this encounter
--- OUTSIDE RECORDS SUMMARY | 2024-07-03 01:28 | XMS_ITS | Encounter Summary ---
Author Organization [facility] [place] [address] Care Team Providers Care Lawn Care Professional Name Role Phone Norman Abdul APRN Primary Care Provider [phone] Encounter Details Date Type Department Care Team (Latest Contact Info) Description 03/02/2024 Travel Social History Tobacco Use Types Packs/Day [...] 9:45 AM EDT Office Visit Dermatology at [facility] [address] [place] [address] Maverick Polanco MD [address] [facility] [place] [address] documented as of this encounter Visit Diagnoses Not on filedocumented in this encounter Care Teams Lawn Care Professional Relationship Specialty Start Date End Date Norman Abdul APRN [address] [place], [place] [id number] PCP - General Family Medicine 02/20/22 documented as of this encounter
--- OUTSIDE RECORDS SUMMARY | 2024-07-03 01:28 | XMS_ITS | Encounter Summary ---
Author Organization [facility] Address [facility] [place] [address] Care Team Providers Care Patient Care Name Role Phone JaydenJem orozco Primary Care Provider Encounter Details Date Type Department Care Team (Late st Contact Info) Description 07/23/2012 [place] [address] Eric Avila MD [facility] [place] [address] Social History Tobacco Use Types Packs/Day Years [...] encounter Miscellaneous Notes * Telephone Encounter - Eric Avila MD - 07/23/2012 5:35 PM EST Called to discuss pathology He is doing well. He needs no adjuvant therapy I will see in 3 months with a PSA All questions answered, Eric Avila documented in this encounter Plan of Treatment Upcoming Encounters Date Type Department Care Team (Late st Contact Info) Description 10/05/2024 9:45 AM EDT Office Visit Dermatology at [facility] [address] [place] [address] Maverick Polanco MD [address] [facility] [place] [address] documented as of this encounter Visit Diagnoses Not on filedocumented in this encounter Care Teams Patient Care Relationship Specialty Start Date End Date Jem Carpenter DO [address] [place] [address] [address] [place] [address] PCP - General 06/23/12 02/19/22 documented as of this encounter
--- OUTSIDE RECORDS SUMMARY | 2024-07-03 01:29 | XMS_ITS | Encounter Summary ---
Author Organization [facility] Address [facility] [place] [address] Care Team Providers Care Water Carter Name Role Phone JaydenFrances orozco Primary Care Provider [phone] Encounter Details Date Type Department Care Team (Latest Contact Info) Description 07/11/2012 6:48 AM EST - 07/12/2012 4:04 PM EST Hospital Encounter [address] [place] [address] Charles Giles MD [facility] [place] [address] Discharge Disposition: Home Social History Tobacco Use [...] Sign Reading Time Taken Comments Blood Pressure 121/65 07/12/2012 1:05 PM EST Pulse 68 07/12/2012 1:05 PM EST Temperature 37.2 ??C (99 ??F) 07/12/2012 1:05 PM EST Respiratory Rate 17 07/12/2012 1:05 PM EST Oxygen Saturation 96% 07/12/2012 1:05 PM EST Inhaled Oxygen Concentration - - Weight 81.2 kg (179 lb) 07/11/2012 9:02 PM EST Height 180.3 cm (5' 11) 07/11/2012 9:02 PM EST Body Mass Index 24.97 07/11/2012 9:02 PM EST documented in this encounter Discharge Instructions * Patient Instructions* Joshua Pike - 07/11/2012 3:51 PM EST Call your doctor for: fevers greater than 100.5 severe nausea or vomiting increasing pain not controlled by pain medications increasing redness or drainage from incisions decreased urine output our if your catheter is no longer draining. The number for questions is [phone] before 5 PM weekdays and [phone] after 5 PM and weekends. Activity level: No heavy lifting greater than 10 pounds (about equal to a full gallon jug) for the next 4 weeks or until cleared to do so at follow-up appointment. Otherwise activity as tolerated by comfort level. Diet: You may resume your regular diet as tolerated. Driving: No driving while still taking opioid pain medications (wait at least 6- 8 hours since last dose). No driving if you are still sore from surgery as it may limit your ability to react quickly if necessary. Shower/Bath: You may shower and get incision(s) wet in 24 hours. Pat dry immediately following. Do not scrub them vigorously for the next 2-3 weeks. Do not soak incision(s) (i.e. soaking in bath or swimming) until told you may do so by a doctor, as this may promote a wound infection. Wound Care: You may cover wounds with sterile gauze as needed to prevent incision rubbing on clothes or for any seepage. Follow up Appointments: Future Appointments Date Time Provider Department Center 07/21/2012 11:00 AM Rita Calderon MD [facility] 07/21/2012 11:00 AM Testing Urology [facility] documented in this encounter Medications at Time of Discharge Medication Sig Dispensed Refills Start Date End Date hydroCODone-acetamino phen (VICODIN) 5-500 mg per tablet Take 1-2 tablets by mouth every 6 hours as needed for Pain (for breakthrough pain). 30 tablet 0 07/12/2012 07/21/2012 acetaminophen (TYLENOL) 325 mg tablet Take 2 tablets by mouth every 4 hours as needed for Pain. 07/12/2012 07/21/2012 ibuprofen (IBUPROFEN IB) 200 mg tablet Take 3 tablets by mouth every 6 hours as needed for Pain. 07/12/2012 07/21/2012 documented as of this encounter Progress Notes * Ama Betts RN - 07/12/2012 3:57 PM EST Discharge crm analyst taught patient and his how to care for and use the walker catheter at home including how to change from a large walker bag to a smaller leg bag. Walker catheter supply bag given to patient. gave a demonstration of proper technique on how to empty the walker drain bag. This RN reviewed the After Visit Summary with patient and his and they both said they understood the plan andwhen to call the doctor if need be. This RN gave patient his prescription for Vicodin and a copy ofthe AVS as well as a roll of tape and several guaze pads to use over the RLQ GLENN site that was oozing slightly after it was removed today. will drive home. Patient brought out of hospital via wheelchair. * Cabrera Baugh MD - 07/12/2012 12:04 PM EST PROGRESS NOTE ID 57 y/o male POD#1 s/p RALP INTERIM: - No issues overnight - Tolerating clears flatus this AM - Good pain control PE: Last value Range last 24hrs Temperature Temp: 37.4 ??C (99.3 ??F) Temp: [36.8 ??C (98.2 ??F)-37.4 ??C (99.3 ??F)] Heart Rate Heart Rate: 69 Heart Rate: [54-77] Blood Pressure BP: 130/70 mmHg BP: (114-138)/(58-70) Respiratory Rate Resp: 18 Resp: [14-20] SpO2 SpO2: 98 % SpO2: [93 %-100 %] 4.4L in 3.2L out (340cc Drain) NAD, pleasant abd soft, lap incisions benign GLENN with SS output Ext without edema Urine clear IMPRESSION: - POD#1 s/p RALP PLAN: - PO pain meds - Regular diet, HLIV - >200cc this AM from GLENN, will check creatinine - Home later today / tomorrow pending GLENN Cr result Attending Addendum: Patient seen and examined. Agree with plan as above. * Nita Wayne RN - 07/12/2012 11:15 AM EST Walker catheter and leg bag teaching done with the patient and spouse. Spouse demonstrated changing his walker bag to a leg bag, with no problems. Brochures given for cleaning, also information regarding his surgery. Supplies given to the patient to take home. We also reviewed the GLENN drain. Pt's spouse demonstrated emptying and closing of drain, milking of tubing, changing the dressing. Reviewed signs and symptoms of infection with the patient and spouse. I also reviewed documenting GLENN drain output if the patient goes home with it. No questions voiced at this time. * Gonzalez Cassidy MD - 07/11/2012 4:09 PM EST Margarito Silver is a 57 y.o. male sp laparoscopic prostatectomy S: No nausea/vomiting, chest pain, SOB, pain well controlled, offers no complaints O: Temp: [36.8 ??C (98.2 ??F)] Heart Rate: [57-73] Resp: [14-16] BP: (124-138)/(62-70) SpO2: [93 %-100 %] I/O this shift: In: 2109 [I.V.:2109] Out: 520 [Urine:300; Other:70; Blood:150] Physical Exam Gen: NAD, resting comfortable CVS: RRR Resp: CTA Abd: soft, nontender, nondistended Wounds: incisions c/d/i Drains: to suction, serosang. Fluid Walker: blood tinged urine Ext: SCDs in place AP Margarito Silver is a 57 y.o. male sp above procedure currently in stable condition and recovering well - continue post operative plan per primary team - pain well controlled - hemodynamically stable, UOP adequate documented in this encounter H&P Notes * Charles Giles MD - 07/11/2012 8:06 AM EST Patient Name: Margarito Silver Patient Age: 57 y.o. Birthdate: 1955 Admit date: 07/11/2012 Attending Physician: Charles Giles MD No change in history or examination. He is ready to proceed with radical prostatectomy. [id number] [place] 3+4=7 Prostate Cancer with a PSA of 7.6 at diagnosis. I again reviewed the risks of this procedure including the results with regard to incontinence, erectile function and cancer control. We discussed the pre, intra and post op care and decision making.We discussed the risks of conversion to open surgery. The risks of injury to surrounding structure,nerves, blood vessels, rectum (including need for colostomy, fistula) ureters etc. We discussed therisks of unexpected complications requiring prolonged hospitalization, ICU care, reoperation etc. We talked about positive margins ,recurrence, the need for radiation etc.All the patients questions were answered. He signed the informed consent. Charles Giles documented in this encounter Miscellaneous Notes * Miscellaneous - Provider, Scanning - 07/13/2012 2:02 PM EST * Miscellaneous - Provider, Scanning - 07/13/2012 2:01 PM EST * Plan of Care - Ama Betts RN - 07/12/2012 3:55 PM EST Problem: Pain, Acute (Adult, Obstetric) Goal: Acute Pain: Acceptable Pain Control/Comfort Level - Pain, Acute (Adult, Obstetric) Outcome: Therapy, goal met Date Met: 07/12/12 Pain well managed. Patient and said they understand how and when to use pain meds after discharge. Problem: Trauma/Injury Risk (Adult, Obstetric) Goal: Trauma/Injury Risk: Absence of Trauma/Injury/Falls Outcome: Therapy, goal met Date Met: 07/12/12 No trauma, no injury during patient's over night hospital stay. * Plan of Care - Concepcion Hills RN - 07/11/2012 7:59 PM EST Problem: Trauma/Injury Risk (Adult, Obstetric) Goal: Trauma/Injury Risk: Absence of Trauma/Injury/Falls Outcome: Absent and monitoring Pt remains free of injury/fall during shift. Pt rings call gonzalez appropriately. * Plan of Care - Concepcion Hills RN - 07/11/2012 7:58 PM EST Problem: Pain, Acute (Adult, Obstetric) Goal: Acute Pain: Acceptable Pain Control/Comfort Level - Pain, Acute (Adult, Obstetric) Outcome: Present (see interventions, notes) Pt rates pain 1/10 in abdomen and 4/10 in right shoulder. Heating pad provided for right shoulder. Will cont to monitor. * Plan of Care - Ama Betts RN - 07/11/2012 6:51 PM EST Problem: Pain, Acute (Adult, Obstetric) Goal: Acute Pain: Acceptable Pain Control/Comfort Level - Pain, Acute (Adult, Obstetric) Patient c/o abd/pelvic pain 3/10. Vicodin x 1 tab given with good results. RN explained to patient his prn pain meds. * Op Note - Guy Yarbrough MD - 07/11/2012 5:08 PM EST [facility] Operative Note Patient Name: Margarito Silver : [id number] MR#: [id number] Case Date: 07/11/2012 Surgeon: Surgeon(s) and Role: * Charles Giles MD - Primary * Guy Yarbrough MD - Resident-Surgeon Chief DIAGNOSIS: Prostate Ca Procedure(s): @LAPAROSCOPIC PROSTATECTOMY, ROBOTICS ASSISTED LAPAROSCOPY,WITH BILATERAL TOTAL PELVIC LYMPHADENECTOMY, ROBOTIC Anesthesia: General Findings: 1.) bilateral nerve sparing 2.) grossly organ confined disease 3.) anastomosis tested, no leak Complications: none Fluids: 2L Estimated Blood Loss: 150cc Drains: 19Fr cuca, 18Fr walker Disposition: awakened from anesthesia, extubated and taken to the recovery room in a stable condition, having suffered no apparent untoward event. Condition: doing well without problems (Please see the Surgical Encounter Summary for any Implant and Specimen details pertinent to this patient.) HPI/Surgical Indications: Mr. Silver is a 57M with [id number] [place] 3+4=7 Prostate Cancer with a PSA of 7.6 at diagnosis. After consultation he elects to proceed with RALP and PLND. Procedure Description: The patient was brought to the operating room and prepped and draped in sterile fashion in the dorsal lithotomy position. Prior to proceeding, we verified patient's identity, that consent had been obtained, and that he had received the appropriate preoperative antibiotics. We began by placing a supraumbilical 12-mm trocar site using Veress technique. At this time, the robotic trocars were placed in the right and left lower quadrants in standard fashion as well as assistant refinery operator ports in left lower quadrant and the left upper quadrant. We began with dissection of the seminal vesicles using electrocautery. Once these had been taken down with a posterior approach and a nice posterior plane in the rectum had been achieved, we then dropped the bladder anteriorly using the lateral borders of the umbilical ligaments superiorly up to the level of the urachus. Once this was retracted down and the pubic symphysis and the endopelvic fascia had been cleared, we then turned our attention to our pelvic lymph node dissection. We proceeded by identifying the obliterated umbilical artery as well as the ureter crossing the iliacs proximally. We proceeded with a distal dissection along the iliac vein laterally, distally to the level of the circumflex vein, taking the node of [place] and the packet surrounding the obturator nerve deep, and medially we proceeded with dissection to the level of the perivesical fat. Once this had been accomplished, we then bagged these lymph nodes separately and sent them for pathology. We then proceeded with suture ligation of the dorsal venous complex using an 0 Vicryl suture as well as a more proximally placed suture on the dorsal aspect of the prostate in order to prevent future backbleeding. Once this had been accomplished, using electrocautery, we then dissected the base of the prostate off the bladder neck. Once this had been done in satisfactory manner, we then addressed the bilateral pedicles using clip technique. We then proceeded with bilateral nerve sparing technique. We then took down the apex using electrocautery, being careful to preserve a nice urethral stump. Once the prostate had been freed from the rectum, this was placed again in a separate EndoCatch bag. We then proceeded with a Shaquille suture in order to reapproximate the bladder neck to the urethral stump. Anastomosis was then performed using running technique using a 4-0 Monocryl suture. Once this had been performed, the catheter was then replaced and the anastomosis tested with 120 mL of saline, and no leak was verified. We then decreased our insufflation to 5 mmHg and noticed no leak. At this time, the GLENN drain was placed in the right lower quadrant and a Ezequiel-Goyal was used to close our assistant refinery operator port in left lower quadrant. The patient's abdomen was then desufflated and all ports were removed under direct fashion. Once the port site fascia had been reapproximated using 0 Vicryl suture, the overlying skin was reapproximated using 4-0 running Monocryl in subcuticular fashion. The patient was awakened and taken to the PACU. Complications: None. Disposition: Will admit for routine postoperative care. * Discharge Summary - Joshua Pike - 07/11/2012 3:53 PM EST Inpatient - Discharge Summary Patient Name: Margarito Silver Patient Age: 57 y.o. Birthdate: 1955 Admit date: 07/11/2012 Discharge date and time: No discharge date for patient encounter. Attending Physician: Charles Giles MD Primary Diagnosis: <principal problem not specified> Secondary Diagnosis: There are no hospital problems to display for this patient. Active Non-Hospital Problems Diagnoses ??? Prostate cancer HPI: [id number] [place] 3+4=7 Prostate Cancer with a PSA of 7.6 at diagnosis. Operations/Major Procedures: Operations: 07/11/2012 Surgeon(s) and Role: * Charles Giles MD - Primary * Guy Yarbrough MD - Resident-Surgeon Chief: Procedure(s): @LAPAROSCOPIC PROSTATECTOMY, ROBOTICS ASSISTED LAPAROSCOPY,WITH BILATERAL TOTAL PELVIC LYMPHADENECTOMY, ROBOTIC Hospital Course: Margarito Silver was taken to the operating room where the above procedures were performed. He tolerated the operation well and without complication. He was admitted post-operatively for observation and management. The patient's hospital course was uncomplicated and he was deemed stable for discharge to home on post- operative day 1. Pending Lab Data at Discharge: None Condition at Discharge: Stable Important Studies and Lab Data: Labs: Recent Results (from the past 24 hour(s)) CREATININE LEVEL BODY FLUID Component Value Range Creat, BF 0.6 Creat, BF Type GLENN Drain Studies: .ris Exam: Temp: [36.8 ??C (98.2 ??F)-37.4 ??C (99.3 ??F)] Heart Rate: [54-77] Resp: [14-20] BP: (114-130)/(58-70) SpO2: [93 %-98 %] I/O last 3 completed shifts: In: 4390 [P.O.:600; I.V.:3790] Out: 3170 [Urine:2680; Other:340; Blood:150] I/O this shift: In: 749 [I.V.:749] Out: 1660 [Urine:1400; Other:260] Gen: lying in bed, NAD, oriented x3 Pulm: CTAB, no crackles/wheeze Card: normal rate/rhythm, no m/r/g Abd: non-distended, normal BS, soft, non-tender to palpation Wound: incision clean, dry, intact, no purulent drainage Ext: no edema, 2+ peripheral pulses Discharge to: Home Discharge Conditions/Prognosis: Stable Discharge Medications: No medications prior to admission that will be resumed at discharge. New medications prescribed at discharge: Medication Sig Dispense Refill ??? hydroCODone-acetaminophen (VICODIN) 5-500 mg per tablet Take 1-2 tablets by mouth every 6 hoursas needed for Pain (for breakthrough pain). 30 tablet 0 ??? acetaminophen (TYLENOL) 325 mg tablet Take 2 tablets by mouth every 4 hours as needed for Pain. ??? ibuprofen (IBUPROFEN IB) 200 mg tablet Take 3 tablets by mouth every 6 hours as needed for Pain. Updated Allergies/ADRs: No Known Allergies Follow-up Recommendations for Providers: Future Appointments Date Time Provider Department Center 07/21/2012 11:00 AM Rita Calderon MD [facility] 07/21/2012 11:00 AM Testing Urology [facility] PCP: FRANCES CARPENTER DO Scheduled Appointments: Future Appointments Date Time Provider Department Center 07/21/2012 11:00 AM MD CAROL Perez [facility] 07/21/2012 11:00 AM Testing Urology [facility] Outpatient Services/Studies: No discharge procedures on file. Instructions Given to Patient at Discharge:. An After Visit Summary was printed and given to the patient. Provider Instructions Call your doctor for: fevers greater than 100.5 severe nausea or vomiting increasing pain not controlled by pain medications increasing redness or drainage from incisions decreased urine output our if your catheter is no longer draining. The number for questions is [phone] before 5 PM weekdays and [phone] after 5 PM and weekends. Activity level: No heavy lifting greater than 10 pounds (about equal to a full gallon jug) for the next 4 weeks or until cleared to do so at follow-up appointment. Otherwise activity as tolerated by comfort level. Diet: You may resume your regular diet as tolerated. Driving: No driving while still taking opioid pain medications (wait at least 6- 8 hours since last dose). No driving if you are still sore from surgery as it may limit your ability to react quickly if necessary. Shower/Bath: You may shower and get incision(s) wet in 24 hours. Pat dry immediately following. Do not scrub them vigorously for the next 2-3 weeks. Do not soak incision(s) (i.e. soaking in bath or swimming) until told you may do so by a doctor, as this may promote a wound infection. Wound Care: You may cover wounds with sterile gauze as needed to prevent incision rubbing on clothes or for any seepage. Follow up Appointments: Future Appointments Date Time Provider Department Center 07/21/2012 11:00 AM Rita Calderon MD [facility] 07/21/2012 11:00 AM Testing Urology [facility]RO [facility] General Instructions None Signed: JOSHUA PIKE MD 07/12/2012 * Brief Op Note - Guy Yarbrough MD - 07/11/2012 1:41 PM EST Brief Operative Note Patient Name: Margarito Silver : [id number] MR#: [id number] Case Date: 07/11/2012 Surgeon: Surgeon(s) and Role: * Charles Giles MD - Primary * Guy Yarbrough MD - Resident-Surgeon Chief Preoperative diagnosis: PROSTATE CANCER Postoperative diagnosis: PROSTATE CANCER Procedure(s): @LAPAROSCOPIC PROSTATECTOMY, ROBOTICS ASSISTED LAPAROSCOPY,WITH BILATERAL TOTAL PELVIC LYMPHADENECTOMY, ROBOTIC Anesthesia: General Findings: 1.) bilateral nerve sparing 2.) grossly organ confined disease 3.) anastomosis tested, no leak Complications: none Fluids: 2L Estimated Blood Loss: 150cc Drains: 19Fr cuca, 18Fr walker Disposition: awakened from anesthesia, extubated and taken to the recovery room in a stable condition, having suffered no apparent untoward event. Condition: doing well without problems (Please see the Surgical Encounter Summary for any Implant and Specimen details pertinent to this patient.) * OR Attestation - Charles Giles MD - 07/11/2012 1:03 PM EST Attestation: Case Date: 07/11/2012 I performed the procedure with the assistance of the resident. I performed or directly supervising all critical aspects. Bilateral lymph node dissection Bilateral nerve sparing. Good. No obvious extracapsular disease ~2cm urethra. Good anaestomosis Charles GILES MD 07/11/2012 * Miscellaneous - Provider, Scanning - 07/11/2012 10:15 AM EST documented in this encounter Plan of Treatment Upcoming Encounters Date Type Department Care Team (Late st Contact Info) Description 10/05/2024 9:45 AM EDT Office Visit Dermatology at [facility] [address] [place] [address] Maverick Polanco [facility] [address] [facility] [place] [address] documented as of this encounter Procedures Procedure Name Priority Date/Time Associated Diagnosis Comments CREATININE LEVEL BODY FLUID Routine 07/12/2012 12:04 PM EST SURGICAL PATHOLOGY REPORT Routine 07/11/2012 1:55 PM EST SPECIMEN TO PATHOLOGY Routine 07/11/2012 1:17 PM EST SPECIMEN TO PATHOLOGY Routine 07/11/2012 1:17 PM EST SPECIMEN TO PATHOLOGY Routine 07/11/2012 1:17 PM EST ROBOTIC LAPAROSCOPY,WITH BILATERAL TOTAL PELVIC LYMPHADENECTOMY (WRVU 12) 07/11/2012 8:24 AM EST PROSTATE CANCER ROBOTIC LAPAROSCOPIC PROSTATECTOMY (WRVU 22.46) 07/11/2012 8:24 AM EST PROSTATE CANCER documented in this encounter Results * Creatinine Level Body Fluid (07/12/2012 12:04 PM EST) Creatinine, Fluid 0.6 mg/dL [facility] Comment: No reference range is available for the specimen type submitted. ??The performance of this assay for the submitted type has not been validated and results should be interpreted accordingly and with regard to the patient's clinical status. Creat, Fld Type GLENN Drain [facility]ILL[facility] Body fluid specimen (specimen) 07/12/2012 12:04 PM EST 07/12/2012 12:11 PM EST Narrative Resulting Agency Comment Spec In Lab Charles Giles MD BODY FLUIDS AND DAVID LS ORDERABLES [facility] * Surgical Pathology Report (07/11/2012 1:55 PM EST) Pathologist [facility] Surgical Pathology Report ? [facility] ? Provider: ?? CHARLES GILES ?Pt. Name: ?? MARGARITO SILVER ? Acc #: ?[id number] ?Pt. ? Col Date: ?? 07/11/2012 ?/Sex: ?1955,(57 years),Male ? Rec Date: ?? 07/11/2012 ?LOC: ?2WST ? SURGICAL PATHOLOGY ? ---Pathologic Diagnosis--- ? A - Specimen type: ?Radical prostatectomy ? Histologic type: ?Adenocarcinoma of the prostate ? [place] grades: ? 3+4 ? [place] score: ?7 ? Location of tumor: ?Right lobe ? % prostate involved by tumor: 10% ? Extracapsular extension (MARANDA):Absent ? Seminal vesicle invasion: ? Absent ? Margins: ?Margins uninvolved by invasive carcinoma ? Perineural invasion: ?Present ? Lymphovascular invasion: ?Absent ? Additional findings: ?1 - Cystic atrophy. ? 2 - Focal acute prostatitis. ? TNM STAGING (AJCC, 7th ed., 2009): ? Extent of invasion: ? pT2a (organ confined, unilateral, ? <1/2 of 1 side) ? Regional lymph nodes: ? pN0 (no regional LN metastasis) ? Distant metastasis: ? pMX (cannot be assessed) ? B - Left pelvic lymph nodes, excision: ? Five lymph nodes negative for malignancy (0/5). ? C - Right pelvic lymph nodes, excision: ? Six lymph nodes negative for malignancy (0/6). ? CR-0 ? 07/17/12 ? ARS ? 07/17/12 Verified by: ? Alex Barrientos MD ? Pathologist ? (Electronic Signature) ? The attending pathologist whose signature appears on this report has ? reviewed all diagnostic slides and has edited the gross and/or ? microscopic portion of the report in rendering the final pathologic ? diagnosis. ? ---Microscopic Description--- ? Slides reviewed, microscopic description not recorded. ? [facility] ? Provider: ?? CHARLES GILES ?Pt. Name: ?? MARGARITO SILVER ? Acc #: ?[id number] ?Pt. ? Col Date: ?? 07/11/2012 ?/Sex: ?1955,(57 years),Male ? Rec Date: ?? 07/11/2012 ?LOC: ?2WST ? SURGICAL PATHOLOGY ? ---Gross Description--- ? A - Labeled/Fixative: ?Prostate stitch at right apex, fresh. ? Size/Weight: ? 6.0 cm apex to base. ?3.5 cm transverse. ?3.5 cm anterior to posterior. ? 56 gram ? Tissue Description: ?Length of adnexa: ? Rt Seminal Vesicle: ??2.5 cm. ? Lt Seminal Vesicle: ??2.5 cm. ? Rt Vas Deferens: ? 3.0 cm. ? Lt Vas Deferens: ? 1.0 cm. ?Outer Surface: ?The posterior surface is flattened with some ?ragged tissue, and the anterior surface is ? bulbous. ??The urethra is easily probed. ??The bladder neck margin is easily ? identified. ??The vasa deferentia are midline and appear grossly normal. ? Seminal vesicles are lateral to the vasa deferentia and appear grossly ? normal. ?Cut Surface: ?The specimen is serially sectioned from apex ? to base. ??Cut surface shows mayfield, solid, ?homogeneous parenchyma. ??Lesion is not grossly ?identified. ? Sections/Processi ng: ? The right half of the specimen is inked with ?Trudy ink and the left half with yellow ink. ? The bladder neck margin is removed en face in a disc approximately the size ? of a nickel. ??The bladder neck margin is serially sectioned around the ? urethra and entirely submitted. ??The prostate is serially sectioned from ? apex to base at 3.0-mm intervals. ??The 3.0-mm apical slice is divided into ? anterior and posterior halves. ??Each half of the apical slice is then ? serially sectioned perpendicular to the inked apical resection margin and ? submitted as anterior/posterio r apical margin. ??Beginning with the ? transverse slice immediately next to the apical slice every remaining ? transverse slice is bisected into right and left halves. ??Each is then ? further bisected into anterior and posterior quadrant. ??A shallow score is ? made in the medial cut edge of each quadrant. ??Sections of the transverse ? slice are submitted in the ??following sequence: ??Right anterior quadrant, ? right posterior quadrant, left anterior quadrant, and left posterior ? quadrant. ??Each seminal vesicle is serially sectioned longitudinally, and ? both sides are entirely submitted. ??These sections will show the area from ? the stapled end outward toward the tip. ??The bilateral vas deferens margins ? are submitted with the seminal vesicle. ??The prostate is sectioned into ? eleven slices, I being the apex. ??(A1-A2) bladder neck margin; (A3) apical ? anterior margin; (A4) apical posterior margin. ??Slices II-XI are entirely ? submitted in the sequence of quadrants as ? [facility] ? Provider: ?? CHARLES GILES ?Pt. Name: ?? MARGARITO SILVER ? Acc #: ?[id number] ?Pt. ? Col Date: ?? 07/11/2012 ?/Sex: ?1955,(57 years),Male ? Rec Date: ?? 07/11/2012 ?LOC: ?2WST ? SURGICAL PATHOLOGY ? noted above, as follows: ??(A5-A8) slice II; (A9-A12) slice III; (A13-A16) ? slice IV; (A17-A20) slice V; (A21-A24) slice ; (A25-A28) slice VII; (A29- ? A32) slice VIII; (A33-A36) slice IX; (A37-A40) slice X; (A41-A44) slice XI; ? (A45-A51) right seminal vesicle and vas; (A52) right vas deferens margin; ? (A53-A57) left seminal vesicle; (A58) left vas deferens margin. ??(R58) ? B - Labeled/Fixative: Left pelvic lymph nodes, fresh. ? Qty/Size/Weight: ?Aggregate, 6.0 x 4.0 x 1.5 cm. ? Tissue Description: ?? Yellow, fatty tissue. ??Sectioning reveals five ? presumed lymph nodes, ranging from 1.0 cm to 3.5 cm. ? Sections/Processi ng: ??(B1-B5) one lymph node; (B6) one lymph node, ? bisected; (B7) one lymph node, bisected; (B8) one ? lymph node, bisected; (B9) one lymph node, ? bisected. ??(R9) ? C - Labeled/Fixative: Right pelvic lymph node, fresh. ? Qty/Size/Weight: ?Aggregate, 6.0 x 5.0 x 2.0 cm. ? Tissue Description: ?? Yellow, fatty tissue. ??Sectioning reveals six lymph ? nodes, ranging from 1.0 cm to 3.0 cm. ? Sections/Processi ng: ??(C1-C4) one lymph node; (C5-C9) one lymph node ? each. ??(R9) ??aje/TMS ? ---Clinical Information--- ? Specimen Submitted: ? A - Prostate stitch at right apex ? B - Left pelvic lymph nodes ? C - Right pelvic lymph nodes ? Clinical History/Diagnosis : ? Prostate cancer CERNER GRETTAENNIUM 07/11/2012 1:55 PM EST Charles Giles MD PATHOLOGY/CYTOLOGY O DELISA Performing Organization Address [facility] de Phone Number YARIEL GARCIA * Specimen to Pathology (surgical or derm) (07/11/2012 1:17 PM EST) AP Specimen 07/11/2012 1:17 PM EST 07/11/2012 1:17 PM EST Narrative CERNER MILLENNIUM - 07/11/2012 1:17 PM EST Specimen requisition ordered. ??Separate Pathology report to follow Charles Giles MD PATHOLOGY/CYTOLOGY O DELISA Performing Organization Address [facility] de Phone Number YARIEL CHAPARROIUM * Specimen to Pathology (surgical or derm) (07/11/2012 1:17 PM EST) AP Specimen 07/11/2012 1:17 PM EST 07/11/2012 1:17 PM EST Narrative CERNER MILLENNIUM - 07/11/2012 1:17 PM EST Specimen requisition ordered. ??Separate Pathology report to follow Charles Giles MD PATHOLOGY/CYTOLOGY O DELISA Performing Organization Address [facility] Co de Phone Number YARIEL GARCIA * Specimen to Pathology (surgical or derm) (07/11/2012 1:17 PM EST) AP Specimen 07/11/2012 1:17 PM EST 07/11/2012 1:17 PM EST Narrative CERNER MILLENNIUM - 07/11/2012 1:17 PM EST Specimen requisition ordered. ??Separate Pathology report to follow Charles Giles MD PATHOLOGY/CYTOLOGY O DELISA YARIEL GARCIA documented in this encounter Visit Diagnoses Not on filedocumented in this encounter Administered Medications Inactive Administered Medications - up to 3 most recent administrations Medication Order MAR Action Action Date Dose Rate Site acetaminophen (TYLENOL) tablet 1,000 mg 1,000 mg, Oral, EVERY 6 HOURS PRN, Starting on Sat07/11/12 at 1407, Until 07/12/12 at 1809, Pain, for MODERATE pain, Do not exceed 4,000 mg in 24 hours, Recovery (Recovery-Hospital Unit), Routine Given 07/11/2012 3:14 PM EST 1,000 mg ceFAZolin (ANCEF) 2g in dextrose 5% 100mL 2 g, Intravenous, EVERY 8 HOURS, First dose on Sat07/11/12 at 0000, Until Discontinued, Administer over 30 Minutes, Indication for (Active or Suspected): Prophylaxis Given 07/11/2012 8:56 AM EST 2 g docusate sodium (COLACE) capsule 100 mg 100 mg, Oral, 2 TIMES DAILY, First dose on Sat07/11/12 at 2100, Until Discontinued, Recovery (Recovery-Hospital Unit), Routine Given 07/12/2012 10:47 AM EST 100 mg Given 07/11/2012 9:00 PM EST 100 mg heparin (porcine) subcutaneous injection 5,000 Units 5,000 Units, Subcutaneous, EVERY 8 HOURS SCHEDULED, First dose on Sat07/11/12 at 0600, Until Discontinued, Routine Given 07/11/2012 8:52 AM EST 5,000 Units Left Arm heparin (porcine) subcutaneous injection 5,000 Units 5,000 Units, Subcutaneous, EVERY 12 HOURS SCHEDULED (2 times per day), First dose on Sat07/11/12 at 2100, Until Discontinued, Recovery (Recovery-Hospital Unit), Routine Given 07/12/2012 10:47 AM EST 5,000 Units Given 07/11/2012 9:00 PM EST 5,000 Units hydroCODone-acetaminophen (VICODIN) 5-500 mg per tablet 1-2 tablet 1-2 tablet, Oral, EVERY 4 HOURS PRN, Starting on Sat07/11/12 at 1407, Until 07/12/12 at 1809, Pain, Maximum dose of acetaminophen is 4000 mg from all sources in 24 hours., Recovery (Recovery-Hospital Unit), Routine Given 07/12/2012 3:54 PM EST 2 tablets Given 07/11/2012 4:38 PM EST 1 tablet HYDROmorphone (DILAUDID) injection 0.2-0.4 mg 0.2-0.4 mg, Intravenous, EVERY 5 MIN PRN, Starting on Sat07/11/12 at 1337, Until Sat07/11/12 at 1535, Pain, PACU Recovery, Routine Given 07/11/2012 3:11 PM EST 0.2 mg ibuprofen (ADVIL;MOTRIN) tablet 800 mg 800 mg, Oral, EVERY 6 HOURS PRN, Starting on Sat07/11/12 at 1407, Until 07/12/12 at 1809, Pain, for MODERATE pain, Do not administer with ketorolac, Recovery (Recovery-Hospital Unit), Routine Given 07/12/2012 10:47 AM EST 800 mg Given 07/11/2012 9:27 PM EST 800 mg lactated ringers infusion 1,000 mL 1,000 mL, at 100 mL/hr, Intravenous, CONTINUOUS, Starting on Sat07/11/12 at 0715, Until Sat07/11/12 at 1627, Day of Surgery (Day of Procedure) New Bag 07/11/2012 8:21 AM EST 1,000 mLs 100 mL/hr sodium chloride 0.9 % flush 5 mL 5 mL, Intravenous, EVERY 12 HOURS, First dose on Sat07/11/12 at 1700, Until Discontinued, Recovery (Recovery-Hospital Unit) Given 07/12/2012 5:00 AM EST 5 mLs Given 07/11/2012 4:42 PM EST 5 mLs sodium chloride 0.9% with potassium chloride 20 mEq infusion 125 mL/hr, Intravenous, CONTINUOUS, Starting on Sat07/11/12 at 1430, Until 07/12/12 at 0842, Recovery (Recovery-Hospital Unit) New Bag 07/12/2012 4:34 AM EST 125 mL/hr 125 mL /hr New Bag 07/11/2012 9:33 PM EST 125 mL/hr 125 mL/hr Rate/Dose Verify 07/11/2012 4:41 PM EST 125 mL/hr 125 mL/ hr documented in this encounter Active and Recently Administered Medications Times are shown in EST. Scheduled Medication Order 07/10/2012 07/11/2012 07/12/2012 ceFAZolin (ANCEF) 2g in dextrose 5% 100mL (CANCELED) 2 g, Intravenous, EVERY 8 HOURS, First dose on Sat07/11/12 at 0000, Until Discontinued, Administer over 30 Minutes, Indication for (Active or Suspected): Prophylaxis 0000 (Due)0856 (Given - Provider: Vipul Connors CRNA) docusate sodium (COLACE) capsule 100 mg (CANCELED) 100 mg, Oral, 2 TIMES DAILY, First dose on Sat07/11/12 at 2100, Until Discontinued, Recovery (Recovery-Hospital Unit), Routine 2100 (Given - Provider: Concepcion Hilsl RN) 1047 (Given - Provider: Nita Wayne RN) heparin (porcine) subcutaneous injection 5,000 Units (CANCELED) 5,000 Units, Subcutaneous, EVERY 8 HOURS SCHEDULED, First dose on Sat07/11/12 at 0600, Until Discontinued, Routine 0852 (Given - Provider: Vipul Connors CRNA) heparin (porcine) subcutaneous injection 5,000 Units (CANCELED) 5,000 Units, Subcutaneous, EVERY 12 HOURS SCHEDULED (2 times per day), First dose on Sat07/11/12 at 2100, Until Discontinued, Recovery (Recovery-Hospital Unit), Routine 2100 (Given - Provider: Concepcion Hills RN) 1047 (Given - Provider: Nita Wayne RN) sodium chloride 0.9 % flush 5 mL (CANCELED) 5 mL, Intravenous, EVERY 12 HOURS, First dose on Sat07/11/12 at 1700, Until Discontinued, Recovery (Recovery-Hospital Unit) 1642 (Given - Provider: Ama Betts RN) 0500 (Given - Provider: Concepcion Hills RN) Continuous Medication Order 07/10/2012 07/11/2012 07/12/2012 lactated ringers infusion 1,000 mL (CANCELED) 1,000 mL, at 100 mL/hr, Intravenous, CONTINUOUS, Starting on Sat07/11/12 at 0715, Until Sat07/11/12 at 1627, Day of Surgery (Day of Procedure) 0715 (Due)0821 (New Bag - Provider: Dick Saab RN) sodium chloride 0.9% with potassium chloride 20 mEq infusion (CANCELED) 125 mL/hr, Intravenous, CONTINUOUS, Starting on Sat07/11/12 at 1430, Until 07/12/12 at 0842, Recovery (Recovery-Hospital Unit) 1412 (New Bag - Provider: Judy Keith RN)1641 (Rate/Dose Verify - Provider: Ama Betts RN)2133 (New Bag - Provider: Concepcion Hills, THOR) 0434 (New Bag - Provider: Concepcion Hills, THOR)1031 (Stopped - Provider: Ama Betts RN) PRN Medication Order 07/10/2012 07/11/2012 07/12/2012 acetaminophen (TYLENOL) tablet 1,000 mg (CANCELED) 1,000 mg, Oral, EVERY 6 HOURS PRN, Starting on Sat07/11/12 at 1407, Until 07/12/12 at 1809, Pain, for MODERATE pain, Do not exceed 4,000 mg in 24 hours, Recovery (Recovery-Hospital Unit), Routine 1514 (Given - Provider: Judy Keith RN) BUpivacaine (PF) (MARCAINE) 0.25 % (2.5 mg/mL) injection (CANCELED) ONCE PRN, Starting on Sat07/11/12 at 0947, Until Sat07/11/12 at 1535, Intra-Operative (Intra-Procedure), Routine 0947 (Given - Provider: Guy Yarbrough MD) hydroCODone-acetaminophen (VICODIN) 5-500 mg per tablet 1-2 tablet 1-2 tablet, Oral, EVERY 4 HOURS PRN, Starting on Sat07/11/12 at 1407, Until 07/12/12 at 1809, Pain, Maximum dose of acetaminophen is 4000 mg from all sources in 24 hours., Recovery (Recovery-Hospital Unit), Routine 1638 (Given - Provider: Ama Betts RN) 1554 (Given - Provider: Ama Betts RN - Comment: prophylactic for drive home) HYDROmorphone (DILAUDID) injection 0.2-0.4 mg (CANCELED) 0.2-0.4 mg, Intravenous, EVERY 5 MIN PRN, Starting on Sat07/11/12 at 1337, Until Sat07/11/12 at 1535, Pain, PACU Recovery, Routine 1511 (Given - Provider: Judy Keith, THOR) ibuprofen (ADVIL;MOTRIN) tablet 800 mg (CANCELED) 800 mg, Oral, EVERY 6 HOURS PRN, Starting on 07/11/12 at 1407, Until 07/12/12 at 1809, Pain, for MODERATE pain, Do not administer with ketorolac, Recovery (Recovery-Hospital Unit), Routine 2127 (Given - Provider: Concepcion Hills RN) 1047 (Given - Provider: Nita Wayne RN) documented in this encounter Care Teams Water Carter Relationship Specialty Start Date End Date Frances Carpenter DO [address] [place] [address] [address] [facility] [address] [place] [address] PCP - General 06/23/12 02/19/22 documented as of this encounter
--- OUTSIDE RECORDS SUMMARY | 2024-07-03 01:29 | XMS_ITS | Encounter Summary ---
Author Organization [facility] Address [address] [place] [address] Care Team Providers Care Glycerin Supervisor Name Role Phone Jem Carpenter DO Primary Care Provider [phone] Encounter Details Date Type Department Care Team (Late st Contact Info) Description 04/03/2012 Results Only [facility] [phone] Whit Hutton MD [address] [address] Social History Tobacco Use Types Packs/Day Years Used Date Smoking Tobacco: Never Assessed Sex and Gender Information Value Date Recorded Sex Assigned at Not on file Legal Sex Male 18:57 EST Gender Identity Not on file Sexual Orientation Not on file documented as of this encounter Plan of Treatment Not on file documented as of this encounter Procedures Procedure Name Priority Date/Time Associated Diagnosis Comments SURGICAL PATHOLOGY Routine 04/03/2012 0:00 EDT documented in this encounter Results * SURGICAL PATHOLOGY (04/03/2012 0:00 EDT) Pathology Report: SURGICAL PATHOLOGY REPORT Reports generated via electronic interface contain original data; however they are lacking the format of the original report. Caution should be taken when reading/interpreting unformatted reports. Name: ? MARGARITO LIN ? Accession #: ? [id number] ? : ? 1955 (Age: 56) ??M ? Collect Date: ? 04/03/2012 ? Location: ? [facility] ? Receive Date: ? 04/03/2012 ? Provider: WHIT HUTTON MD Copy to: JEM ESPINOZADERICK DO ? Final Pathologic Diagnosis: A. ?Prostate, right apex, lateral, needle biopsy: 1. ?Prostatic adenocarcinoma. ? - Histologic grade: ? - Primary (predominant) Mayank pattern: ??Grade 3. ??- Secondary (worst remaining) Mayank pattern: ??Grade 4. ??See comment. ? - Total [place] score: ??7. ?- Number of cores positive/total number of cores: ??07/22. ? - Tumor focus measures 1.0 mm, involving 7% of biopsy specimen. ?- Perineural invasion: ??Not identified. ?- Lymph-vascular invasion: ??Not identified. 2. ?? High grade prostatic intraepithelial neoplasia (PIN): ??Not identified. ? B. ?? Prostate, right apex, medial, needle biopsy: 1. ?Prostatic adenocarcinoma. ? - Histologic grade: ? - Primary (predominant) [place] pattern: ??Grade 3. ??- Secondary (worst remaining) Mayank pattern: ??Grade 4. ? - Total [place] score: ??7. ?- Number of cores positive/total number of cores: ??07/22. ? - Tumor focus measures 2.7 mm, involving 15% of biopsy specimen. ?- Perineural invasion: ??Not identified. ?- Lymph-vascular invasion: ??Not identified. 2. ?? High grade prostatic intraepithelial neoplasia (PIN): ??Not identified. ? C. ?? Prostate, right mid, lateral, needle biopsy: ?1. ?? Benign prostatic glands and stroma. ? D. ?? Prostate, right mid, medial, needle biopsy: ?1. ?? Benign prostatic glands and stroma with atrophy. ? E. ?? Prostate, right base, lateral, needle biopsy: ?1. ?? Benign prostatic glands and stroma. ? F. ?? Prostate, right base, medial, needle biopsy: ?1. ?? Benign prostatic glands and stroma. ? G. ?? Prostate, left apex, lateral, needle biopsy: ?1. ?? Benign prostatic glands and stroma with atrophy. ? H. ?? Prostate, left apex, medial, needle biopsy: ?1. ?? Benign prostatic glands and stroma with focal atrophy. ? I. ?Prostate, left mid, lateral, needle biopsy: ?1. ?? Benign prostatic glands and stroma with focal atrophy. ? J. ?? Prostate, left mid, medial, needle biopsy: ?1. ?? Benign prostatic glands and stroma with focal atrophy and mild chronic inflammation. ? K. ?? Prostate, left base, lateral, needle biopsy: ?1. ?? Benign prostatic glands and stroma with atrophy. ? L. ?? Prostate, left base, medial, needle biopsy: ?1. ?? Benign prostatic glands and stroma. ?? Comment: ? Anode Crew Supervisor sections of this case were reviewed at the intradepartmental consultation conference. ?? Document reviewed and electronically signed by: JED BERRY MD Report ??Date: 04/11/2012 09:45 By the signature above, the attending physician certifies that he/she has personally conducted a gross and/or microscopic examination of the described specimens and rendered or confirmed the above diagnosis. Specimen(s) Received: A. ?R apex lat B. ? R apex medial C. ? R mid lat D. ? R mid med E. ? R base lat F. ? R base med G. ? L apex lat H. ? L apex med I. ? L mid lat J. ? L mid med K. ? L base lat L. ? L base med Clinical History: ? Elevated PSA 790.93 Gross Description: ? Received in formalin labelled Lin, Margarito and R apex lat is a reese-white, cylindrical soft tissue fragment measuring 1.4 cm in length, and less than 0.1 cm in diameter. ??The specimen is entirely submitted as (A). Received in formalin labelled Lin, Margarito and R apex medial is a reese-white, cylindrical soft tissue fragment measuring 1.6 cm in length and less than 0.1 cm in diameter. ??The specimen is entirely submitted as (B). Received in formalin labelled Lin, Margarito and R mid lat is a reese-white, cylindrical soft tissue fragment measuring 1.5 cm in length and less than 0.1 cm in diameter. ??The specimen is entirely submitted as (C). Received in formalin labelled Lin, Margarito and R mid medial is a reese-white, cylindrical soft tissue fragment measuring 1.8 cm in length and less than 0.1 cm in diameter. ??The specimen is entirely submitted as (D). Received in formalin labelled Lin, Margarito and R base lat is a reese-white, cylindrical soft tissue fragment measuring 1.6 cm in length and less than 0.1 cm in diameter. ??The specimen is entirely submitted as (E). Received in formalin labelled Lin, Margarito and R base medial are two reese-white, cylindrical soft tissue fragments measuring 0.5 and 0.7 cm in length, averaging less than 0.1 cm in diameter. ??The specimen is entirely submitted as (F). Received in formalin labelled Lin, Margarito and L apex lat is a reese-white, cylindrical soft tissue fragment measuring 1.7 cm in length, less than 0.1 cm in diameter. ??The specimen is entirely submitted as (G). Received in formalin labelled Lin, Margarito and L apex medial is a reese-white, cylindrical soft tissue fragment measuring 1.6 cm in length and less than 0.1 cm in diameter. ??The specimen is entirely submitted as (H). Received in formalin labelled Lin, Margarito and L mid lat is a reese-white, cylindrical soft tissue fragment measuring 1.7 cm in length, less than 0.1 cm in diameter. ??The specimen is entirely submitted as (I). Received in formalin labelled Lin, Margarito and L mid medial is a reese-white, cylindrical soft tissue fragments measuring 1.8 cm in length and less than 0.1 cm in diameter. ??The specimen is entirely submitted as (J). Received in formalin labelled Lin, Margarito and L base lat are two reese-white, cylindrical soft tissue fragments measuring 0.2 and 1.2 cm in length, averaging less than 0.1 cm in diameter. ??The specimen is entirely submitted as (K). Received in formalin labelled Lin, Margarito and L base medial is a reese-white, cylindrical soft tissue fragment measuring 1.2 cm in length and less than 0.1 cm in diameter. ??The specimen is entirely submitted as (L). ??([facility] ?? End of Report [facility] 04/03/2012 04/03/2012 16: 37 EDT us Whit Hutton MD PATHOLOGY ORDERABLES Final Re sult [facility] [address] [place] [address] documented in this encounter Visit Diagnoses Not on filedocumented in this encounter Care Teams Glycerin Supervisor Relationship Specialty Start Date End Date Jem Carpenter DO [address] [place] [address] [address] [place] [address] PCP - General 04/03/12 documented as of this encounter
--- OUTSIDE RECORDS SUMMARY | 2024-07-03 01:29 | XMS_ITS | Encounter Summary ---
Author Organization [facility] Address [address] [place] [address] Care Team Providers Care Bullard Machine Operator Name Role Phone Jem Carpenter DO Primary Care Provider [phone] Encounter Details Date Type Department Care Team (Late st Contact Info) Description 12/31/2019 Lab Requisition [facility] Pathology & Laboratory Medicine - [address] [id number] Outr Resulting Lab, Provider Social History Tobacco Use Types Packs/Day Years [...] Procedure Name Priority Date/Time Associated Diagnosis Comments DO NOT ORDER STANDALONE - BROAD COVID TEST Today 12/31/2019 10:34 EDT COVID-19 TESTING Routine 12/31/2019 10:3 4 EDT documented in this encounter Results * DO NOT ORDER STANDALONE - BROAD COVID TEST (12/31/2019 10:34 EDT) COVID-19 rt-PCR Result NEGATIVE Negative 01/01/2020 19:18 EDT [facility] Comment: 2019-novel Coronavirus (2019-nCoV) not detected by the qRT-PCR assay. Consider testing for other respiratory viruses or re-collecting for 2019-nCoV testing. Note: Optimum timing for peak viral levels during infections caused by 2019-nCoV have not been determined. Collection of multiple specimens from the same patient may be necessary to detect the virus. Limitations Positive results are indicative of active infection with SARS-CoV-2 but do not rule out bacterial infection or co-infection with other viruses. The agent detected may not be the definite cause of disease. In addition, detection of viral RNA may not indicate the presence of infectious virus or that SARS-CoV-2 is the causative agent for clinical symptoms. Negative results do not preclude SARS-CoV-2 infection and should not be used as the sole basis for patient management decisions. Negative results must be combined with clinical observations, patient history, and epidemiological information. False negative results may also occur if amplification inhibitors are present in the specimen or if inadequate numbers of organisms are present in the specimen. Optimum specimen types and timing for peak viral levels during infections caused by SARS-CoV-2 have not been fully determined. Collection of multiple specimens (types and time points) from the same patient may be necessary to detect the virus. The test was validated for use with upper respiratory specimens obtained via nasopharyngeal or oropharyngeal swabs in VTM, UTM, M4, M5, M6, saline, and MTM media. The performance of this test has not been established for other specimens. Specimens collected using other FDA recommended Specimen Collection Materials listed in the FDA COVID-19 [employer] communication (October 15, 2019) are processed with the caveat that they were not all validated for use with this test and the result must be interpreted in this context. Furthermore, a false negative results may occur if a specimen is improperly collected, transported or handled. If the virus mutates in the RT-PCR target region, SARS-CoV-2 may not be detected or may be detected less predictably. Inhibitors or other types of interference may produce a false negative result. An interference study evaluating the effect of common cold medications was not performed. This test is not FDA-cleared but its performance characteristics were established by our CLIA-certified, CAP-accredited, high complexity laboratory in accordance with CLIA regulations, [employer] (CAP) guidelines (Oct 08, 2019), and FDA guidance (Sep 19, 2019). This test is only for use under the Food and Drug Administration's Emergency Use Authorization. Swab ENTIRE NASOPHARYNX / Unknown 12/31/2019 10:34 EDT 12/31/2019 21:57 EDT us Provider Outr Resulting Lab MICROBIOLOGY - GENER AL ORDERABLES Final Result [facility] [place], [place] * COVID-19 TESTING (12/31/2019 10:34 EDT) Pathologist [facility] COVID-19 rt-PCR Result NEGATIVE Negative 01/01/2020 23:56 EDT [facility] Comment: 2019-novel Coronavirus (2019-nCoV) not detected by the qRT-PCR assay. Consider testing for other respiratory viruses or re-collecting for 2019-nCoV testing. Note: Optimum timing for peak viral levels during infections caused by 2019-nCoV have not been determined. Collection of multiple specimens from the same patient may be necessary to detect the virus. Limitations Positive results are indicative of active infection with SARS-CoV-2 but do not rule out bacterial infection or co-infection with other viruses. The agent detected may not be the definite cause of disease. In addition, detection of viral RNA may not indicate the presence of infectious virus or that SARS-CoV-2 is the causative agent for clinical symptoms. Negative results do not preclude SARS-CoV-2 infection and should not be used as the sole basis for patient management decisions. Negative results must be combined with clinical observations, patient history, and epidemiological information. False negative results may also occur if amplification inhibitors are present in the specimen or if inadequate numbers of organisms are present in the specimen. Optimum specimen types and timing for peak viral levels during infections caused by SARS-CoV-2 have not been fully determined. Collection of multiple specimens (types and time points) from the same patient may be necessary to detect the virus. The test was validated for use with upper respiratory specimens obtained via nasopharyngeal or oropharyngeal swabs in VTM, UTM, M4, M5, M6, saline, and MTM media. The performance of this test has not been established for other specimens. Specimens collected using other FDA recommended Specimen Collection Materials listed in the FDA COVID-19 [employer] communication (October 15, 2019) are processed with the caveat that they were not all validated for use with this test and the result must be interpreted in this context. Furthermore, a false negative results may occur if a specimen is improperly collected, transported or handled. If the virus mutates in the RT-PCR target region, SARS-CoV-2 may not be detected or may be detected less predictably. Inhibitors or other types of interference may produce a false negative result. An interference study evaluating the effect of common cold medications was not performed. This test is not FDA-cleared but its performance characteristics were established by our CLIA-certified, CAP-accredited, high complexity laboratory in accordance with CLIA regulations, [employer] (CAP) guidelines (Oct 08, 2019), and FDA guidance (Sep 19, 2019). This test is only for use under the Food and Drug Administration's Emergency Use Authorization. Performing Lab [facility] 01/01/2020 23:56 EDT [facility] Swab 12/31/2019 10:3 4 EDT 12/31/2019 21:57 EDT us Provider Outr Resulting Lab MICROBIOLOGY - GENER AL ORDERABLES Final Result [facility] [address] [place] [address] [facility] [place], [place] documented in this encounter Visit Diagnoses Not on filedocumented in this encounter Care Teams Bullard Machine Operator Relationship Specialty Start Date End Date Jem Carpenter DO [address] [place] [id number] PCP - General 04/03/12 documented as of this encounter
--- OUTSIDE RECORDS SUMMARY | 2024-07-03 01:29 | XMS_ITS | Encounter Summary ---
[place] [address] Care Team Providers Care Inner Tube Tuber Machine Operator Name Role Phone Jem Carpenter DO Primary Care Provider [phone]- [phone] Encounter Details Date Type Department Care Team (Late st Contact Info) Description 05/08/2012 10:00 AM EDT Clinical Support Hematology [place] [address] Social History Tobacco Use Types Packs/Day Years Used Date Smoking Tobacco: Never Sex and Gender Information Value Date Recorded Sex Assigned at Not on file Gender Identity Not on file Sexual Orientation Not on file documented as of this encounter Plan of Treatment Upcoming Encounters Date Type Department Care Team (Late st Contact Info) Description 10/05/2024 9:45 AM EDT Office Visit Dermatology at [facility] [address] [place] [address] Maverick Polanco MD [address] [facility] [place] [address] documented as of this encounter Visit Diagnoses Not on filedocumented in this encounter Care Teams Inner Tube Tuber Machine Operator Relationship Specialty Start Date End Date Jem Carpenter DO [address] [place], [place] [id number] PCP - General 06/13/10 06/22/12 documented as of this encounter
--- OUTSIDE RECORDS SUMMARY | 2024-07-03 01:29 | XMS_ITS | Encounter Summary ---
Author Organization [facility] [place] [address] Care Team Providers Care Table Cut Off Saw Operator Name Role Phone Jem Carpenter DO Primary Care Provider [phone] Encounter Details Date Type Department Care Team (Late st Contact Info) Description 07/11/2012 8:27 AM EST Anesthesia Event [place] [address] Vandana Archer MD [facility] [place] [address] Anesthesia Record Procedure Summary Procedure Name Responsible Anesthesiologist Anesthesia Start Time Anesthesia Stop Time ROBOTIC LAPAROSCOPIC PROSTATECTOMY (WRVU 22.46) (Bilateral: Pelvis) Vandana Archer MD 07/11/12 0827 07/11/12 1359 Events Date Time Event Comment 07/11/2012 0818 0827 Start 1359 Stop Meds * Agents No agents on file. * Blood No blood administrations on file. Lines, Drains, and Airways Type Details Placement Removal Urethral Catheter 07/11/12; indwelling double lumen catheter; latex; 18; inserted (inserted by Zenon COLLINS); drainage bag to dependent drainage 07/11/12 0000 by Mary Rivera RN Drain/Device Site 07/11/12; Right; abdomen; collapsible closed device (19 cuca drain) 07/11/12 0000 by Mary Rivera RN Incision 07/11/12; abdomen; 03/19/22 (LDA cleanup utility RA#[id number]); 1715 (LDA cleanup utility RA#[id number]) 07/11/12 0000 by Mary Rivera RN 03/19/22 1715 by Julio César Escobedo (RETIRED) Peripheral IV Line - Single Lumen 07/11/12; 0821; 07/12/12; 1526 07/11/12 0821 by Dick Saab RN 07/12/12 1526 by Ama Betts RN documented in this encounter Social History Tobacco Use Types Packs/Day Years [...] on file documented as of this encounter OR Notes * Anesthesia Postprocedure Evaluation - Vandana Archer MD - 07/11/2012 7:00 PM EST Patient: Margarito Silver Procedure(s) Performed: Procedure(s): @LAPAROSCOPIC PROSTATECTOMY, ROBOTICS ASSISTED LAPAROSCOPY,WITH BILATERAL TOTAL PELVIC LYMPHADENECTOMY, ROBOTIC Patient location: PACU Post-op pain: Adequate analgesia Post-op nausea: no nausea or vomiting Last Vitals: Filed Vitals: 07/11/12 1700 BP: Pulse: 77 Temp: Resp: 20 Post-op cardiovascular and respiratory status: is stable Level of consciousness: awake, alert and oriented Complications: no apparent complications and tolerated the procedure well Fluid Status: normal Vandana Archer MD * Anesthesia Preprocedure Evaluation - Vipul Connors CRNA - 07/11/2012 8:17 AM EST Today I evaluated Margarito Silver a 57 y.o. male. Procedure(s): @LAPAROSCOPIC PROSTATECTOMY, ROBOTICS ASSISTED LAPAROSCOPY,WITH BILATERAL TOTAL PELVIC LYMPHADENECTOMY, ROBOTIC Patient Active Problem List Diagnoses ??? Prostate cancer ??? Pre-op exam Past Medical History Diagnosis Date ??? Prostate cancer ??? Patellar bursitis 03/30/2004 ??? Palpitations 03/14/2004 Pt c/o exertional chest pain. work up negative for cardiac disease. stress test negative per patient No past surgical history. History Substance Use Topics ??? Smoking status: Never Smoker ??? Smokeless tobacco: Not on file ??? Alcohol Use: occassional No Known Allergies Medications: MAR and/or home medications have been reviewed. Physical Exam: Airway Assessment: Mallampati: I TM distance: >3 FB Neck ROM: full Cardiovascular Assessment: Rhythm: regular Rate: normal Pulmonary Assessment: breath sounds clear to auscultation Dental Assessment: Misc Assessment: Anesthesia Plan: ASA 2 general, with a(n) intravenous induction Plan for GETA. Discussed g/b/a of anesthetic plan. Also discussed positioning and risks associated with it. Pt verbalized understanding. Informed Consent: Anesthetic plan and risks discussed with patient. Use of blood products discussed with patient whom consented to blood products. Plan discussed with FAMILY HEALTH NURSE PRACTITIONER and attending. Misc. Assessment: documented in this encounter Miscellaneous Notes * Addendum Note - Rajani Ramos - 07/14/2012 11:35 AM EST Addendum created 07/14/12 1135 by Rajani Ramos Modules edited:Anesthesia Events, Anesthesia Responsible Staff, SmartForms SmartFormsVN Section for SmartForms 266 documented in this encounter Plan of Treatment Upcoming Encounters Date Type Department Care Team (Late st Contact Info) Description 10/05/2024 9:45 AM EDT Office Visit Dermatology at [facility] [address] [place] [address] Maverick Polanco MD [address] [facility] [place] [address] documented as of this encounter Visit Diagnoses Not on filedocumented in this encounter Care Teams Table Cut Off Saw Operator Relationship Specialty Start Date End Date Jem Carpenter DO [address] [place], [place] [id number] [facility] [address] [place] [address] PCP - General 06/23/12 02/19/22 documented as of this encounter
--- OUTSIDE RECORDS SUMMARY | 2024-07-03 01:29 | XMS_ITS | Encounter Summary ---
Author Organization [facility] Address [address] [place] [address] Care Team Providers Care Concrete Journeyman Name Role Phone Jem Carpenter DO Primary Care Provider [phone] Encounter Details Date Type Department Care Team (Late st Contact Info) Description 01/05/2020 Lab Requisition [facility] Pathology & Laboratory Medicine - [address] [address] Devante Healy MD [address] [place] [phone] Encounter for screening for malignant neoplasm of colon Social History Tobacco Use Types Packs/Day Years [...] Priority Date/Time Associated Diagnosis Comments SURGICAL PATHOLOGY Today 01/04/2020 15 :45 EDT documented in this encounter Results * SURGICAL PATHOLOGY (01/04/2020 15:45 EDT) Final Diagnosis A. COLON, SIGMOID, POLYP, BIOPSY: - Tubular adenoma. B. RECTUM, POLYP, BIOPSY: - Rectal mucosa with hyperplastic surface change. 01/07/2020 15:52 EDT [facility] at 1552 Attestation By the signature below, the attending physician certifies that they have 1) personally conducted a gross and/or microscopic examination of the described specimen(s), and/or personally interpreted the results of laboratory testing of the described specimen(s), and 2) personally rendered or confirmed the above diagnosis. 01/07/2020 15:52 T [facility] at 1552 Clinical History Preoperative DX: Screening Postoperative DX: Colon polyps 01/07/2020 15:52 EDT [facility] Gross Description A. Received in formalin labelled with proper patient identification (initials B, F) and A. Sigmoid polyp is a mayfield-brown tissue (0.7 x 0.4 x 0.1 cm). Submitted in toto in A1. B. Received in formalin labelled with proper patient identification (initials B, F) and B. Rectal polyp are 2 mayfield-brown tissue fragments (0.2 x 0.2 x 0.1 cm and 0.3 x 0.3 x 0.2 cm). Submitted in toto in B1. Susie Eckert 01/06/2020 7:46 01/07/2020 15:52 EDT [facility] Scanned Images 01/07/2020 15:52 T [facility] Tissue SPECIMEN FROM RECTUM / Unknown 01/04/2020 15:45 EDT 01/05/2020 22:36 EDT Tissue specimen (specimen) SPECIMEN FROM RECTUM / Unknown 01/04/2020 15:45 EDT 01/05/2020 22:36 EDT us Devante Healy MD PATHOLOGY ORDERABLES Final Res ult [facility] [address] [place] [address] documented in this encounter Visit Diagnoses Diagnosis Encounter for screening for malignant neoplasm of colon Special screening for malignant neoplasms, colon documented in this encounter Care Teams Concrete Journeyman Relationship Specialty Start Date End Date Jem Carpenter DO [address] [place] [address] [place] [address] PCP - General 04/03/12 documented as of this encounter
--- OUTSIDE RECORDS SUMMARY | 2024-07-03 01:29 | XMS_ITS | Encounter Summary ---
[place] [address] Care Team Providers Care Family Practitioner Name Role Phone Jem Carpenter DO Primary Care Provider [phone]- [phone] Encounter Details Date Type Department Care Team (Late st Contact Info) Description 05/08/2012 10:05 AM EDT Clinical Support Hematology [place] [address] Social History Tobacco Use Types Packs/Day Years Used Date Smoking Tobacco: Never Sex and Gender Information Value Date Recorded Sex Assigned at Not on file Gender Identity Not on file Sexual Orientation Not on file documented as of this encounter Plan of Treatment Upcoming Encounters Date Type Department Care Team (Late st Contact Info) Description 10/05/2024 9:45 AM EDT Office Visit Dermatology at [facility] [address] [place] [address] Maverick Polanco MD [address] [facility] [place] [address] documented as of this encounter Visit Diagnoses Not on filedocumented in this encounter Care Teams Family Practitioner Relationship Specialty Start Date End Date Jem Carpenter DO [address] [place], [place] [id number] PCP - General 06/13/10 06/22/12 documented as of this encounter
--- OUTSIDE RECORDS SUMMARY | 2024-07-03 01:29 | XMS_ITS | Encounter Summary ---
Author Organization [facility] [place] [address] Care Team Providers Care Crane Ladle Person Name Role Phone JaydenJem orozco Primary Care Provider [phone] Encounter Details Date Type Department Care Team (Late st Contact Info) Description 07/18/2012 [place]phone [place] [address] Jose L Upton MD [facility] [place] [address] Social History Tobacco Use Types Packs/Day Years [...] Encounter - Jose L Upton - 07/18/2012 1:38 PM EST Pt is 1 week s/p RALRP. He had leakage of small amount of urine around his catheter today, now has clear yellow urine draining into walker tubing. Advised likely he had a bladder spasm, his catheter sounds like it is working well now. Pt to call if his catheter stops draining, otherwise f/u as scheduled next week for walker removal. documented in this encounter Plan of Treatment Upcoming Encounters Date Type Department Care Team (Late st Contact Info) Description 10/05/2024 9:45 AM EDT Office Visit Dermatology at [facility] [address] [place] [address] Maverick Polanco MD [address] [facility] [place] [address] documented as of this encounter Visit Diagnoses Not on filedocumented in this encounter Care Teams Crane Ladle Person Relationship Specialty Start Date End Date Jem Carpenter DO [address] [facility] [address] [place] [address] PCP - General 06/23/12 02/19/22 documented as of this encounter
--- OUTSIDE RECORDS SUMMARY | 2024-07-03 01:29 | XMS_ITS | Encounter Summary ---
Author Organization [facility] Address [facility] [place] [address] Care Team Providers Care Cabinetmaker Helper Name Role Phone JaydenFrances orozco Primary Care Provider Encounter Details Date Type Department Care Team (Late st Contact Info) Description 07/11/2012 8:30 AM EST - 07/11/2012 1:58 PM EST Surgery [place] [address] Charles Giles MD [facility] [place] [address] ROBOTIC LAPAROSCOPIC PROSTATECTOMY (WRVU 22.46) Social History Tobacco Use Types Packs/Day Years [...] longer draining. The number for questions is [phone] before 5 PM weekdays and [phone] after 5 PM and weekends. Activity level: [...] 11:00 AM Testing [facility] documented in this encounter Medications at [...] RN - 07/12/2012 3:57 PM EST Discharge host/hostess head taught patient and his how to care [...] MD - 07/11/2012 4:09 PM EST Margarito Jain is a 57 y.o. male sp laparoscopic [...] is ready to proceed with radical prostatectomy. [id number] [place] 3+4=7 Prostate Cancer with a PSA of [...] Yarbrough MD - 07/11/2012 5:08 PM EST [facility] Operative Note Patient Name: Margarito Silver : [id number] MR#: [id number] Case Date: 07/11/2012 Surgeon: Surgeon(s) and Role: [...] Indications: Mr. Silver is a 57M with [id number] Mayank 3+4=7 Prostate Cancer with a PSA of [...] quadrants in standard fashion as well as sociology research assistant ports in left lower quadrant and the [...] the circumflex vein, taking the node of [place] and the packet surrounding the obturator nerve [...] a Ezequiel-Goyal was used to close our sociology research assistant port in left lower quadrant. The patient's [...] Non-Hospital Problems Diagnoses ??? Prostate cancer HPI: [id number] [place] 3+4=7 Prostate Cancer with a PSA of [...] AM Rita Calderon MD [facility] 07/21/2012 11:00 AM Testing Urology [facility] [address] [place] [address] PCP: FRANCES CARPENTER DO Scheduled Appointments: Future Appointments Date Time Provider Department Center 07/21/2012 11:00 AM MD VINITA Perez [facility]B [facility] 07/21/2012 11:00 AM Testing Urology [facility] [address] [place] [address] Outpatient Services/Studies: No discharge procedures on file. [...] longer draining. The number for questions is [phone] before 5 PM weekdays and [phone] after 5 PM and weekends. Activity level: [...] AM Rita Calderon MD [facility] 07/21/2012 11:00 AM Testing Urology [facility] 5[facility] General Instructions None Signed: JOSHUA PIKE MD 07/12/2012 * Brief Op Note - Guy Yarbrough MD - 07/11/2012 1:41 PM EST Brief Operative Note Patient Name: Margarito Silver : [id number] MR#: [id number] Case Date: 07/11/2012 Surgeon: Surgeon(s) and Role: [...] AM EDT Office Visit Dermatology at [facility] [address] [place] [address] Maverick Polanco MD [address] [facility] [place] [address] documented as of this encounter Procedures Procedure [...] 12:04 PM EST) Creatinine, Fluid 0.6 mg/dL [facility] Comment: No reference range is available for [...] Lab Charles Giles MD BODY FLUIDS AND STOO LS ORDERABLES [facility] * Surgical Pathology Report (07/11/2012 1:55 PM EST) Pathologist [facility] Surgical Pathology Report ? [facility] ? Provider: ?? CHARLES GILES ?Pt. Name: ?? MARGARITO SILVER ? Acc #: ?[id number] ?Pt. ? Col Date: ?? 07/11/2012 ?/Sex: ?1955,(57 years),Male ? Rec Date: ?? 07/11/2012 ?LOC: ?2WST ? SURGICAL PATHOLOGY ? ---Pathologic Diagnosis--- ? A - Specimen type: ?Radical prostatectomy ? Histologic type: ?Adenocarcinoma of the prostate ? Mayank grades: ? 3+4 ? Mayank score: ?7 ? Location of tumor: ?Right [...] Slides reviewed, microscopic description not recorded. ? [facility] ? Provider: ?? CHARLES GILES ?Pt. Name: ?? MARGARITO SILVER ? Acc #: ?[id number] ?Pt. ? Col Date: ?? 07/11/2012 ?/Sex: [...] in the sequence of quadrants as ? [facility] ? Provider: ?? CHARLES GILES ?Pt. Name: ?? MARGARITO SILVER ? Acc #: ?[id number] ?Pt. ? Col Date: ?? 07/11/2012 ?/Sex: [...] MD PATHOLOGY/CYTOLOGY O DELISA Performing Organization Address [facility] de Phone Number YARIEL GARCIA * Specimen to Pathology (surgical or derm) (07/11/2012 1:17 PM EST) AP Specimen 07/11/2012 1:17 PM EST 07/11/2012 1:17 PM EST Narrative CERNER MILLENNIUM - 07/11/2012 1:17 PM EST Specimen requisition ordered. ??Separate Pathology report to follow Charles Giles MD PATHOLOGY/CYTOLOGY O DELISA Performing Organization Address [facility] de Phone Number YARIEL GARCIA * Specimen to Pathology (surgical or derm) (07/11/2012 1:17 PM EST) AP Specimen 07/11/2012 1:17 PM EST 07/11/2012 1:17 PM EST Narrative CERNER MILLENNIUM - 07/11/2012 1:17 PM EST Specimen requisition ordered. ??Separate Pathology report to follow Charles Giles MD PATHOLOGY/CYTOLOGY O DELISA Performing Organization Address [facility] Co de Phone Number YARIEL GARCIA * [...] MAR Action Action Date Dose Rate Site BUpivacaine (PF) (MARCAINE) 0.25 % (2.5 mg/mL) injection ONCE PRN, Starting on Sat07/11/12 at 0947, Until Sat07/11/12 at 1535, Intra-Operative (Intra-Procedure), Routine Given 07/11/2012 9:47 AM EST 32.5 mg 19- Surgical Site documented in this encounter Active and Recently [...] Hills RN) 1047 (Given - Provider: Nita Beauchain, RN) sodium chloride 0.9 % flush 5 mL (CANCELED) 5 mL, Intravenous, EVERY 12 HOURS, First dose on Sat07/11/12 at 1700, Until Discontinued, Recovery (Recovery-Hospital Unit) 1642 (Given - Provider: Ama Betts RN) 0500 (Given - Provider: Concepcion Hills, THOR) Continuous Medication Order 07/10/2012 07/11/2012 07/12/2012 lactated [...] Betts RN)2133 (New Bag - Provider: Concepcion Hills RN) 0434 (New Bag - Provider: Concepcion Hills RN)1031 (Stopped - Provider: Ama Betts RN) PRN [...] Unit), Routine 1638 (Given - Provider: Ama Betts, THOR) 1554 (Given - Provider: Ama Betts RN - Comment: prophylactic for drive home) HYDROmorphone (DILAUDID) injection 0.2-0.4 mg (CANCELED) 0.2-0.4 mg, Intravenous, EVERY 5 MIN PRN, Starting on Sat07/11/12 at 1337, Until Sat07/11/12 at 1535, Pain, PACU Recovery, Routine 1511 (Given - Provider: Judy Keith RN) ibuprofen (ADVIL;MOTRIN) tablet 800 mg (CANCELED) 800 mg, Oral, EVERY 6 HOURS PRN, Starting on Sat07/11/12 at 1407, Until 07/12/12 at 1809, Pain, for MODERATE pain, Do not administer with ketorolac, Recovery (Recovery-Hospital Unit), Routine 2127 (Given - Provider: Concepcion Hills RN) 1047 (Given - Provider: Nita Wayne RN) documented in this encounter Care Teams Cabinetmaker Helper Relationship Specialty Start Date End Date Frances Carpenter DO [address] [place] [address] [facility] [address] [place] [address] PCP - General 06/23/12 02/19/22 documented as of this encounter
--- OUTSIDE RECORDS SUMMARY | 2024-07-03 01:29 | XMS_ITS | Encounter Summary ---
Author Organization [facility] Address [facility] [place] [address] Care Team Providers Care Logging Equipment Mechanic Name Role Phone JaydenFrances orozco Primary Care Provider Reason for Visit * Reason Comments Pre-op Exam Encounter Details Date Type Department Care Team (Late st Contact Info) Description 06/23/2012 11:30 AM EST [place] [address] Charles Avila MD [facility] [place] [address] Prostate cancer (Primary Dx); Pre-op exam Discharge Disposition: Home Social History Tobacco Use Types Packs/Day Years Used Date Smoking Tobacco: Never Sex and Gender Information Value Date Recorded Sex Assigned at Not on file Gender Identity Not on file Sexual Orientation Not on file documented as of this encounter Last Filed Vital Signs Vital Sign Reading Time Taken Comments Blood Pressure 130/81 06/23/2012 11:40 AM EST Pulse 52 06/23/2012 11:40 AM EST Temperature - - Respiratory Rate 18 06/23/2012 11:40 AM EST Oxygen Saturation - - Inhaled Oxygen Concentration - - Weight 81.6 kg (180 lb) 06/23/2012 11:40 AM EST Height 180.3 cm (5' 11) 06/23/2012 11:40 AM EST Body Mass Index 25.1 06/23/2012 11:40 AM EST documented in this encounter Progress Notes * Carolyn Salmeron, BECKA - 06/23/2012 12:19 PM EST Patient Name: Margarito Lin Date of Service: 06/23/2012 Primary Care Provider: FRANCES CARPENTER DO Reason for Visit: Margarito Lin is a 57 y.o. male who is here for his preoperative exam. He was initially referred by Dr Balaji Main for evaluation of prostate cancer. His prostate cancer was diagnosed because of PSA 03/2008 4.7 11/2009 5.1 12/2010 5.6 Apparently had a PSA in ~ 12/2011 5.6 03/2012 7.6 7% Free Prostate Biopsy 2007 Negative Bx 03/2012 Prostate 37cc 09/02/cores positive R Lat [place] 3+4=7 7% R Med [place] 3+4=7 15% Currently the patient has no irritative symptoms with minimal frequency and nocturia x 0 . The urinary stream is good and the bladder is emptied completely. There is no hematuria. Erectile function is normal Appetite is good weight is stable. There is no bone pain he has a history of heart murmur but this was worked up on EKG and was told no issue. He does not feel this. No anticoagulation. No recent URI. No abx prior to dental appts. Recent Review Flowsheet Data View Complete Flowsheet myD-H Prostate 05/08/2012 LEOLA-7 1 (Minimal Anxiety) VR12 - Physical Component Summary 57.61 VR12 - Mental Component Summary 55.87 Sexual Health Inventory for Men 25 International Prostate Symptom Score 1 ( Mild LUTS) Prostate Mayank Score 7 Pain Now 0 EPIC Urinary Function 100 EPIC Urinary Bother 100 EPIC Bowel Function 100 EPIC Bowel Bother 96.42 EPIC Sexual Function 58.33 EPIC Sexual Bother 100 EPIC Hormonal Function 100 EPIC Hormonal Bother 100 Post Traumatic Stress Disorder 0 Past Medical History: None Past Surgical History: Circumcision as an adult Medications: Reviewed Allergies: Reviewed Family History: 2/2 maternal uncles with die keeper. Father of [place] @ 65. Patient 2 brothers no die keeper. No diseases run inthe family. 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 The patient has been for 30 years with 2 children. The patient drinks ~ 1 week/. Tobacco:None Systems review: No regular exercise. HEENT: Denies problems with vision, hearing, runny nose, epistaxis, sore throat, hoarseness Cardiovascular: Denies Chest pain, palpitations, shortness of breath, ankle swelling, claudication Respiratory: Denies cough, phlegm, hemoptysis,wheeze, Gastrointestinal: Denies nausea, difficulty swallowing, vomiting, hematemesis, constipation, diarrhea, blood per rectum Neurological: Denies dizziness, double vision, headache, weakness of one side of the body or the other,sudden loss of vision in one eye, Bones and muscles: Denies bone pain, radiating pain, muscle weakness or sore ness. All other systems negative. Physical Exam: Vital Signs are reviewed. The patient appears healthy and in no distress. Examination of the hands, head neck, eyes ears nose and throat is normal. The skin is normal. Thereis no lymphadenopathy or thyroidomegaly The chest is clear to percussion and auscultation. Heart sounds I and II are normal without murmurs or added sounds. The abdomen is benign. There are no masses or organomegaly. /Rectal : deferred (at last visit:External genitalia is normal with bilaterally descended testis and normal phallus. Rectal tone is normal. Rectal exam shows a 40 g benign prostate without nodules. There were no other palpable masses.) Examination of the extremities and neurological examination is grossly normal. Lab UA: neg but sent for culture X-rays are reviewed and are as noted in the history. According to the [facility] Nomogram his chance: Organ confined disease is: 72% Seminal Vesical involvement: 6% Lymph node involvement: 2.7% According to the [facility] nomogram his chance of 5 yr biochemical disease free survival is: Radical prostatectomy: 93% External Radiation: Brachytherapy: 75% Impression: [id number] Mayank 3+4=7 Prostate Cancer with a PSA of 7.6 at diagnosis. Plan: We reviewed his option for surgery with him today. He has intermediate risk prostate cancer. He is not an optimal candidate for Active surveillance given his mayank score 3+4=[address] Avila hadfavoured a bilateral nerve sparing robot assisted prostatectomy in his case, which he is scheduled for on 07/11/12. His postop visit is scheduled for 07/21/12, which is a day that Dr. Avila will be away. Mr. Lin is content seeing the nurses and a resident/backup attending for his voiding trial.His pathology would be discussed at that visit. Dr. Avila had discussed the risks of the procedure at his last visit. We discussed his likely postop course, lifting restrictions of nothing over 10 lbs for 6 weeks. He would like to consider going back to work at 2 weeks if he is comfortable and will not lift. We talked about the procedure of a voiding trial. We talked about urinary incontinence and ED postoperatively. We reviewed his urinary and erectile status today. Dr. Avila was called to the operating room today, so was not able to call the patient. He will [facility]. Mr. Lin did not have any further questions today, he will wait for Dr. Avial to call him, but was quite content and did see [facility] today. He discussed his past cardiac history at [facility] today. Carolyn Dixon APRN documented in this encounter Plan of Treatment Upcoming Encounters Date Type Department Care Team (Late st Contact Info) Description 10/05/2024 9:45 AM EDT Office Visit Dermatology at [facility] [address] [place] [address] Maverick Polanco MD [address] [facility] [place] [address] documented as of this encounter Procedures Procedure Name Priority Date/Time Associated Diagnosis Comments URINE CULTURE Routine 06/23/2012 1:25 PM EST Pre-op exam Prostate cancer documented in this encounter Results * Urine culture Clean Catch Urine (06/23/2012 1:25 PM EST) Urine Culture ? Patient Name: MARGARITO LIN ?Ordered By: CHARLES AVILA ? MR#: [id number] ?LOC: ??5B ? /Sex: ??1955 (57 years), ? Male ? PROCEDURE: Urine Culture ?SOURCE: U CC ? COLLECTED: 06/23/2012 13:25 ? STARTED: 06/23/2012 15:51 ? FINAL REPORT ? Final Report ? Verified:2011 14:58 ? No growth (Less than 1,000 cfu/ml). ? PRELIMINARY REPORT ? Preliminary Report ? Verified:2011 13:20 ? No growth to date. ? YARIEL MILLENNIUM Urine specimen obtained by clean catch procedure (specimen) 06/23/2012 1:25 PM EST 06/23/2012 3:50 PM EST Narrative Resulting Agency Comment Spec In Lab Charles Avila MD MICROBIOLOGY - GENER AL ORDERABLES YARIEL GARCIA documented in this encounter Visit Diagnoses Diagnosis Prostate cancer- Primary Malignant neoplasm of prostate Pre-op exam Preoperative examination, unspecified documented in this encounter Care Teams Logging Equipment Mechanic Relationship Specialty Start Date End Date Frances Carpenter DO [address] [facility] [address] [place] [address] PCP - General 06/23/12 02/19/22 documented as of this encounter
--- OUTSIDE RECORDS SUMMARY | 2024-07-03 01:29 | XMS_ITS | Encounter Summary ---
Author Organization [facility] Address [address] [place] [address] Care Team Providers Care Core Dipper Name Role Phone JaydenJem orozco Primary Care Provider +1- [phone] Encounter Details Date Type Department Care Team (Late st Contact Info) Description 03/16/2021 Lab Requisition [facility] Pathology & Laboratory Medicine - [address] [id number] Outr Resulting Lab, Provider Social History Tobacco Use Types Packs/Day Years Used Date Smoking Tobacco: Never Assessed Interpersonal Safety Answer Date Record ed Physically Hurt Never 02/21/2020 Verbally Threaten Not on file 02/21/2020 Sex and Gender Information Value Date Recorded Sex Assigned at Not on file Legal Sex Male 18:57 EST Gender Identity Not on file Sexual Orientation Not on file documented as of this encounter Plan of Treatment Not on file documented as of this encounter Procedures Procedure Name Priority Date/Time Associated Diagnosis Comments PSA TOTAL, DIAGNOSTIC Routine 03/16/2021 8:30 EDT documented in this encounter Results * PSA TOTAL, DIAGNOSTIC (03/16/2021 8:30 EDT) PSA <0.1 0.0 - 4.5 ng/mL 03/16/2021 21:33 EDT [facility] Blood VENOUS BLOOD / Unknown 03/16/2021 8:30 EDT 03/16/2021 20:41 EDT Narrative [facility] - 03/16/2021 21:33 EDT NOTE: Serum PSA concentration should not be interpreted as absolute evidence for the presence or absence of malignant disease. Assayed on Siemens ADVIA Centaur XPT using chemiluminescent technology.??Values obtained by using different assay methods cannot be used interchangeably. us Provider Outr Resulting Lab CHEMISTRY & BLOOD GA S ORDERABLES Final Result [facility] [address] [place] [address] documented in this encounter Visit Diagnoses Not on filedocumented in this encounter Care Teams Core Dipper Relationship Specialty Start Date End Date Jem Carpenter DO [address] [place] [address] [place] [address] PCP - General 04/03/12 documented as of this encounter
--- OUTSIDE RECORDS SUMMARY | 2024-07-03 01:29 | XMS_ITS | Encounter Summary ---
Author Organization [facility] [place] [address] Care Team Providers Care Photocopying Machine Operator Name Role Phone Jem Carpenter DO Primary Care Provider +1- [phone] Encounter Details Date Type Department Care Team (Late st Contact Info) Description 05/08/2012 External [place] [id number] Provider, Scanning Social History Tobacco Use Types Packs/Day Years Used Date Smoking Tobacco: Never Sex and Gender Information Value Date Recorded Sex Assigned at Not on file Gender Identity Not on file Sexual Orientation Not on file documented as of this encounter Plan of Treatment Upcoming Encounters Date Type Department Care Team (Late st Contact Info) Description 10/05/2024 9:45 AM EDT Office Visit Dermatology at [facility] [address] [place] [address] Maverick Polanco MD [address] [facility] [place] [address] documented as of this encounter Procedures Procedure Name Priority Date/Time Associated Diagnosis Comments SURGICAL PATHOLOGY SCAN Routine 05/08/2012 documented in this encounter Results * Scan Doc: Surgical Pathology (05/08/2012) Eric Avila MD MEDIA MGR SCAN EXT O RDR/RSLT documented in this encounter Visit Diagnoses Not on filedocumented in this encounter Care Teams Photocopying Machine Operator Relationship Specialty Start Date End Date Jem Carpenter, DO [address] [place] [address] PCP - General 06/13/10 06/22/12 documented as of this encounter
--- OUTSIDE RECORDS SUMMARY | 2024-07-03 01:29 | XMS_ITS | Encounter Summary ---
Author Organization [facility] Address [address] [place] [address] Care Team Providers Care Manager Hardware Name Role Phone JaydenJem orozco DO Primary Care Provider +1- [phone] Encounter Details Date Type Department Care Team (Late st Contact Info) Description 07/19/2023 Lab Requisition [facility] Pathology & Laboratory Medicine - [address] [id number] Outr Resulting Lab, Provider Social History Tobacco [...] Associated Diagnosis Comments PSA TOTAL, DIAGNOSTIC Routine 07/19/2023 11:40 EST documented in this encounter Results * PSA TOTAL, DIAGNOSTIC (07/19/2023 11:40 EST) PSA <0.1 <=4.5 ng/mL 07/19/2023 21:33 EST [facility] Blood VENOUS BLOOD / Unknown 07/19/2023 11:40 EST 07/19/2023 21:06 EST Narrative [facility] - 07/19/2023 21:33 EST NOTE: Serum PSA concentration should not be interpreted as absolute evidence for the presence or absence of malignant disease. Assayed on Siemens ADVIA Centaur XPT using chemiluminescent technology.??Values obtained by using different assay methods cannot be used interchangeably. us Provider Outr Resulting Lab CHEMISTRY & BLOOD GA S ORDERABLES Final Result [facility] [address] [place] [address] documented in this encounter Visit Diagnoses Not on filedocumented in this encounter Care Teams Manager Hardware Relationship Specialty Start Date End Date Jem Carpenter DO [address] [place] [address] PCP - General 04/03/12 documented as of this encounter
--- OUTSIDE RECORDS SUMMARY | 2024-07-03 01:29 | XMS_ITS | Referral Summary ---
Author Organization [facility] Address [address] [place] [address] Care Team Providers Care Valuation Manager Name Role Phone Jem Carpenter DO Primary Care Provider +1- [phone] Social History Tobacco Use Types Packs/Day Years Used Date Smoking Tobacco: Never Assessed Interpersonal Safety Answer Date Record ed Physically Hurt Never 02/21/2020 Verbally Threaten Not on file 02/21/2020 Sex and Gender Information Value Date Recorded Sex Assigned at Not on file Legal Sex Male 18:57 EST Gender Identity Not on file Sexual Orientation Not on file Plan of Treatment Not on file Care Teams Valuation Manager Relationship Specialty Start Date End Date Jem Carpenter, DO [address] [place] [address] PCP - General 04/03/12
--- OUTSIDE RECORDS SUMMARY | 2024-07-03 01:29 | XMS_ITS | Encounter Summary ---
[place] [address] Care Team Providers Care Engine Repair Supervisor Name Role Phone JaydenJem orozco Primary Care Provider Encounter Details Date Type Department Care Team (Late st Contact Info) Description 06/23/2012 12:20 PM EST Clinical [place] [address] Social History Tobacco Use Types Packs/Day Years Used Date Smoking Tobacco: Never Sex and Gender Information Value Date Recorded Sex Assigned at Not on file Gender Identity Not on file Sexual Orientation Not on file documented as of this encounter Last Filed Vital Signs Vital Sign Reading Time Taken Comments Blood Pressure - - Pulse - - Temperature - - Respiratory Rate - - Oxygen Saturation 100% 06/23/2012 1:24 PM EST Inhaled Oxygen Concentration - - Weight - - Height - - Body Mass Index - - documented in this encounter Progress Notes * Rola Wilhelm RN - 06/23/2012 2:26 PM EST Pre-anesthesia questionnaire reviewed with patient. Patient states that 12 years ago he had a stress etst for ? irregular heart beat. Tests were negative and he has not had any problems since. Pre-opfolder reviewed with patient and all questions addressed. No testing has been ordered. documented in this encounter Plan of Treatment Upcoming Encounters Date Type Department Care Team (Late st Contact Info) Description 10/05/2024 9:45 AM EDT Office Visit [facility] at [facility] [address] [place] [address] Maverick Polanco MD [address] [facility] [place] [address] documented as of this encounter Visit Diagnoses Not on filedocumented in this encounter Care Teams Engine Repair Supervisor Relationship Specialty Start Date End Date Jem Carpenter DO [address] [place] [address] [address] [facility] [address] [place] [address] PCP - General 06/23/12 02/19/22 documented as of this encounter
--- OUTSIDE RECORDS SUMMARY | 2024-07-03 01:29 | XMS_ITS | Clinical Summary ---
Author Organization [facility] Address [address] [place] [address] Care Team Providers Care Research Engineer Marine Equipment Name Role Phone Jem Carpenter DO Primary Care Provider +1- [phone] Social History Tobacco Use Types Packs/Day Years Used Date Smoking Tobacco: Never Assessed Interpersonal Safety Answer Date Record ed Physically Hurt Never 02/21/2020 Verbally Threaten Not on file 02/21/2020 Sex and Gender Information Value Date Recorded Sex Assigned at Not on file Legal Sex Male 18:57 EST Gender Identity Not on file Sexual Orientation Not on file Plan of Treatment Health Maintenance Due Date Last Done Comments Hepatitis C Screen 1955 Fall Risk Screening 2019 COVID-19 Vaccine ( season) 2024 RSV Immunization ( o r 60+ Years) (1 - 1-dose 75+ series) 2029 Care Teams Research Engineer Marine Equipment Relationship Specialty Start Date End Date Jem Carpenter DO [address] [place] [address] [place] [address] PCP - General 04/03/12
--- OUTSIDE RECORDS SUMMARY | 2024-07-03 01:29 | XMS_ITS | Encounter Summary ---
Author Organization [facility] Address [address] [place] [address] Care Team Providers Care Bag Filler Name Role Phone JaydenJem orozco Primary Care Provider +1- [phone] Encounter Details Date Type Department Care Team (Late st Contact Info) Description 03/17/2020 Lab Requisition [facility] Pathology & Laboratory Medicine - [address] [id number] Outr Resulting Lab, Provider Social History Tobacco [...] Associated Diagnosis Comments PSA TOTAL, DIAGNOSTIC Routine 03/17/2020 9:12 EDT documented in this encounter Results * PSA TOTAL, DIAGNOSTIC (03/17/2020 9:12 EDT) PSA <0.1 0.0 - 4.5 ng/mL 03/17/2020 17:30 EDT [facility] Blood VENOUS BLOOD / Unknown 03/17/2020 9:12 EDT 03/17/2020 16:12 EDT Narrative [facility] - 03/17/2020 17:30 EDT NOTE: Serum PSA concentration should not be interpreted as absolute evidence for the presence or absence of malignant disease. Assayed on Siemens ADVIA Centaur XPT using chemiluminescent technology.??Values obtained by using different assay methods cannot be used interchangeably. us Provider Outr Resulting Lab CHEMISTRY & BLOOD GA S ORDERABLES Final Result [facility] [address] [place] [address] documented in this encounter Visit Diagnoses Not on filedocumented in this encounter Care Teams Bag Filler Relationship Specialty Start Date End Date Jem Carpenter DO [address] [place] [id number] PCP - General 04/03/12 documented as of this encounter
--- OUTSIDE RECORDS SUMMARY | 2024-07-03 01:29 | XMS_ITS | Encounter Summary ---
Author Organization [facility] Address [facility] [place] [address] Care Team Providers Care Building Maintenance Mechanic Name Role Phone JaydenJem orozco Primary Care Provider +1- [phone] Reason for Referral * Consultation (Routine) - Closed Specialty Diagnoses / Procedures Referred By Robby almaraz Referred To Contact Radiation Oncology Diagnoses Prostate cancer Eric Aivla MD [facility] [place] [address] [facility] On[facility] Treatment [address] [place] [id number] Referral ID Status Reason Start Date Expiration Date V isits Requested Visits Authorized [id number] Closed Consult & Test 05/08/2012 11/04/2012 1 1 Reason for Visit * Reason Comments Prostate Cancer Encounter Details Date Type Department Care Team (Late st Contact Info) Description 05/08/2012 10:45 AM EDT Office Visit Hematology [place] [address] Eric Avila MD [facility] [place] [address] Prostate cancer (Primary Dx) Discharge Disposition: Home Social History Tobacco Use Types Packs/Day Years Used Date Smoking Tobacco: Never Sex and Gender Information Value Date Recorded Sex Assigned at Not on file Gender Identity Not on file Sexual Orientation Not on file documented as of this encounter Last Filed Vital Signs Vital Sign Reading Time Taken Comments Blood Pressure 112/76 05/08/2012 11:11 AM EDT Pulse 60 05/08/2012 11:11 AM EDT Temperature - - Respiratory Rate - - Oxygen Saturation - - Inhaled Oxygen Concentration - - Weight 81.6 kg (180 lb) 05/08/2012 11:11 AM EDT Height 180.3 cm (5' 11) 05/08/2012 11:11 AM EDT Body Mass Index 25.1 05/08/2012 11:11 AM EDT documented in this encounter Progress Notes * Eric Avila MD - 05/08/2012 12:44 PM EDT Patient Name: Margarito Silver Date of Service: 05/08/2012 Primary Care Provider: JEM CARPENTER DO Reason for Visit: Margarito Silver is a 56 y.o. male who is referred by Dr Balaji Main for evaluation of prostate cancer. His prostate cancer was diagnosed because of PSA 03/2008 4.7 11/2009 5.1 12/2010 5.6 Apparently had a PSA in ~ 12/2011 5.6 03/2012 7.6 7% Free Prostate Biopsy 2007 Negative Bx 03/2012 Prostate 37cc 09/02/cores positive R Lat [place] 3+4=7 7% R Med [place] 3+4=7 15% Currently the patient has no irritative symptoms with minimal frequency and nocturia x 0 . The urinary stream is good and the bladder is emptied completely. There is no hematuria. Erectile function is normal Appetite is good weight is stable. There is no bone pain. Recent Review Flowsheet Data View Complete Flowsheet myD-H Prostate 05/08/2012 LEOLA-7 1 (Minimal Anxiety) VR12 - Physical Component Summary 57.61 VR12 - Mental Component Summary 55.87 Sexual Health Inventory for Men 25 International Prostate Symptom Score 1 ( Mild LUTS) Prostate [place] Score 7 Pain Now 0 EPIC Urinary Function 100 EPIC Urinary Bother 100 EPIC Bowel Function 100 EPIC Bowel Bother 96.42 EPIC Sexual Function 58.33 EPIC Sexual Bother 100 EPIC Hormonal Function 100 EPIC Hormonal Bother 100 Post Traumatic Stress Disorder 0 Past Medical History: None Past Surgical History: Circumcision as an adult Medications: Reviewed Allergies: Reviewed Family History: 2/2 maternal uncles with teller head. Father of [place] @ 65. Patient 2 brothers no teller head. No diseases run inthe family. Social History: [...] are normal without murmurs or added sounds. Peripheral pulses are full without bruits The abdomen is benign. There are no masses or organomegaly. External genitalia is normal with bilaterally descended testis and normal phallus. Rectal tone is normal. Rectal exam shows a 40 g benign prostate without nodules. There were no other palpable masses. Examination of the extremities and neurological examination is grossly normal. Lab values are reviewed and are as noted in the history. X-rays are reviewed and are as noted in the history. According to the [facility] Nomogram his chance: Organ confined disease is: 72% Seminal Vesical involvement: 6% Lymph node involvement: 2.7% According to the [facility] nomogram his chance of 5 yr biochemical disease free survival is: Radical prostatectomy: 93% External Radiation: Brachytherapy: 75% Impression: [id number] Thomas 3+4=7 Prostate Cancer with a PSA of 7.6 at diagnosis. Plan: The entire 45 minute visit was spent discussing the natural history and treatment options of prostate cancer. I discussed the options for management of his prostate cancer including watchful waiting,hormonal therapy, radiation therapy(including I125 and Pd 103 seed implant, IMRT, 3D conformal, Proton therapy, High Dose Rate), radical prostatectomy (open and laparoscopic)as well as less common options such as cryotherapy. The patient understands that he has significant choice in terms of treatment In summary the patient has intermediate risk prostate cancer He is not an optimal candidate for Active surveillance given his thomas score 3+4=7 tumor. We discussed the rationale and risk, specifically of missing the window of opportunity to cure his prostatecancer. He is a candidate for surgery, external radiation and brachytherapy. I would favour a bilateral nerve sparing robot assisted prostatectomy in his case. I would perform a lymphadenectomy as his risk of sebastian disease is 2.7%. We spent significant time discussing radical prostatectomy. We discussed the various approaches andthen focused on the robot assisted laparoscopic radical prostatectomy . [place] [facility] [place]. I discussed the risks of procedure including the results with regard to incontinence and erectile function. We also reviewed the other potential complications of surgery. We discussed Dr Witt's as compared to my experience. I discussed the options for a second opinion with a radiation therapist (we will make an appt with XRT in [facility]) and or other surgeon. All questions were answered. The patient knows how to contact me if he has further questions or wishes to schedule surgery. Eric Avila. documented in this encounter Plan of Treatment Upcoming Encounters Date Type Department Care Team (Late st Contact Info) Description 10/05/2024 9:45 AM EDT Office Visit Dermatology at [facility] [address] [place] [address] Maverick Polanco MD [address] [facility] [place] [address] Scheduled Referrals Name Type Priority Associated Diagnoses Orde r Schedule Referral to Radiation Oncology Outpatient Referral Routine Prostate cancer Ordered: 05/08/2012 documented as of this encounter Visit Diagnoses Diagnosis Prostate cancer- Primary Malignant neoplasm of prostate documented in this encounter Care Teams Building Maintenance Mechanic Relationship Specialty Start Date End Date Jem Carpenter, DO [address] [place] [address] PCP - General 06/13/10 06/22/12 documented as of this encounter
--- OUTSIDE RECORDS SUMMARY | 2024-07-03 01:29 | XMS_ITS | Encounter Summary ---
Author Organization [facility] Address [facility] [place] [address] Care Team Providers Care Wafer Slicer Name Role Phone Jem Carpenter Primary Care Provider +1- [phone] Encounter Details Date Type Department Care Team (Latest Contact Info) Description 05/07/2012 1:12 PM EDT - 05/07/2012 11:59 PM EDT [place] [address] Charles Avila MD [facility] [address] Discharge Disposition: Home Social History Tobacco Use [...] 9:45 AM EDT Office Visit Dermatology at [facility] [address] [place] [address] Maverick Polanco MD [address] [facility] [place] [address] documented as of this encounter Procedures Procedure Name Priority Date/Time Associated Diagnosis Comments SURGICAL PATHOLOGY REPORT Routine 05/07/2012 7:12 AM EDT documented in this encounter Results * SURGICAL PATHOLOGY REPORT (05/07/2012 7:12 AM EDT) Surgical Pathology Report ? [facility] ? Provider: ?? CHARLES AVILA ?Pt. Name: ?? MARGARITO LIN ? Acc #: ?[id number] ?Pt. ? Col Date: ?? 05/07/2012 ?/Sex: ?1955,(56 years),Male ? Rec Date: ?? 05/08/2012 ?LOC: ?OPW ? SURGICAL PATHOLOGY ? ---Pathologic Diagnosis--- ? CONSULTATION CASE ? Outside slides labeled [id number], collection date 04/03/12. ? A - Prostate, right lateral apex, needle core biopsy: ? Adenocarcinoma, [place] grade 3+4, involving approximately 8% of one ? of one needle core biopsy. ? B - Prostate, right medial apex, needle core biopsy: ? Adenocarcinoma, [place] grade 3+4, involving approximately 15% of one ? of one needle core biopsy. ? C - Prostate, right lateral mid, needle core biopsy: ? Benign prostatic glands and stromas. ? D - Prostate, right medial mid, needle core biopsy: ? Benign prostatic glands and stromas. ? E - Prostate, right lateral base, needle core biopsy: ? Benign prostatic glands and stromas. ? F - Prostate, right medial base, needle core biopsy: ? Benign prostatic glands and stromas. ? G - Prostate, left lateral apex, needle core biopsy: ? Benign prostatic glands and stromas. ? H - Prostate, left medial apex, needle core biopsy: ? Benign prostatic glands and stromas. ? I - Prostate, left lateral mid, needle core biopsy: ? Benign prostatic glands and stromas. ? J - Prostate, left medial mid, needle core biopsy: ? Benign prostatic glands and stromas. ? K - Prostate, left lateral base, needle core biopsy: ? Benign prostatic glands and stromas. ? L - Prostate, left medial base, needle core biopsy: ? Benign prostatic glands and stromas. ? [facility] ? Provider: ?? CHARLES AVILA ?Pt. Name: ?? MARGARITO LIN ? Acc #: ?[id number] ?Pt. ? Col Date: ?? 05/07/2012 ?/Sex: ?1955,(56 years),Male ? Rec Date: ?? 05/08/2012 ?LOC: ?OPW ? SURGICAL PATHOLOGY ? CR-0 ? 05/09/12 ? BJM ? 05/09/12 Verified by: ? SHANIKA MCKEON MD ? Pathologist ? (Electronic Signature) ? The attending pathologist whose signature appears on this report has ? reviewed all diagnostic slides and has edited the gross and/or ? microscopic portion of the report in rendering the final pathologic ? diagnosis. ? ---Microscopic Description--- ? Slides reviewed, microscopic description not recorded. ? ---Gross Description--- ? [facility] ([facility]) pathology slide(s) are reviewed. ??Refer ? to Diagnosis and Specimen Submitted for specific case information. ? For the full text of the [facility] report(s) please refer to Non-DH ? Documentation Pathology in the electronic health record (eDH). ? ---Clinical Information--- ? Specimen Submitted: ? CONSULTATION CASE ? A - 24 slides labeled [id number], collection date 04/03/12. ? [id number] ? Report to: ? [facility] ? Surgical Pathology Department ? [facility], [facility], 2nd Floor ? [address] [place] [address] Avenue ? [place], [place] ??[address] ? YARIEL GARCIA 05/07/2012 7:12 AM EDT Charles Avila MD PATHOLOGY/CYTOLOGY O RDERABLES Performing Organization Address City/State/[facility] Co de Phone Number YARIEL GARCIA documented in this encounter Visit Diagnoses Not on filedocumented in this encounter Care Teams Wafer Slicer Relationship Specialty Start Date End Date Jem Carpenter DO [address] [place] [address] PCP - General 06/13/10 06/22/12 documented as of this encounter
[2024-07-03 08:16] LABS: Calculated LDL 111 mg/dL (<100); Cholesterol 201 mg/dL (<200); HDL Cholesterol 76 mg/dL (40-60); Triglyceride 73 mg/dL (<150)
[2024-07-03 18:24] LABS: PSA, Screening <0.1 ng/mL (<=6.5)
== END 2024-07-03 01:22 | disposition home or self-care (01) ==
LOC: LBO 01:21
PROVIDERS: PCP Nurse Practitioner Family; Visit Provider Nurse Practitioner Family
DX: Z12.5 Encounter for screening for malignant neoplasm of prostate (principal); Z13.6 Encounter for screening for cardiovascular disorders
CPT/HCPCS: 36415; 80061; 84153

== ENCOUNTER → 2025-06-14 13:50 | Outpatient (BNVA) | payer MEDICARE, SELFPAY | PROVIDERS: PCP Nurse Practitioner Family; Referring Provider Nurse Practitioner Family; Visit Provider Student in an Organized Health Care Education/Training Program | DX: K40.90 Unilateral inguinal hernia, without obstruction or gangrene, not specified as recurrent (principal) | CPT/HCPCS: 99213 ==

== ENCOUNTER 2025-06-28 01:24 | Outpatient (CLI) | payer MEDICARE, SELFPAY ==
[2025-06-28 09:14] LABS: Cholesterol 190 mg/dL (<200); HDL Cholesterol 68 mg/dL (>40)
[2025-06-28 18:19] LABS: PSA, Screening <0.1 ng/mL (<=6.5)
== END 2025-06-28 01:25 | disposition home or self-care (01) ==
LOC: LBO 01:25
PROVIDERS: Nurse Practitioner Family; PCP Family Medicine; Visit Provider Family Medicine
DX: Z12.5 Encounter for screening for malignant neoplasm of prostate (principal); Z13.6 Encounter for screening for cardiovascular disorders
CPT/HCPCS: 36415; 80061; 84153